=== PATIENT | female | born 1950 | race Caucasian/White ===

== ENCOUNTER → 2016-08-22 09:48 | Outpatient (CLI) | payer MEDICARE, BC ==
[2013-10-01 07:46] VITALS: BMI 42.5
[~2016-08-22 09:48] MED LIST: CLARITIN 10 MG10 MG PO; CRESTOR10 MG PO; GLUCOPHAGE1000 MG PO; HYDROCODON-ACE1 EAC7 PO; LANTUS INSULIN10 ML INJ; NEXIUM40 MG PO; NORVASC5 MG PO
== END | disposition home or self-care (01) ==
LOC: D.RAD 09:48
DX: R13.10 Dysphagia, unspecified (principal)

== ENCOUNTER → 2018-04-10 09:11 | Outpatient (CLI) | payer MEDICARE, BC ==
[2013-10-01 07:46] VITALS: BMI 42.5
== END | disposition home or self-care (01) ==
LOC: D.HCCARDIO 09:11
PROVIDERS: ATTEND Internal Medicine Cardiovascular Disease
DX: I20.9 Angina pectoris, unspecified (principal)

== ENCOUNTER 2018-04-18 11:23 | Inpatient (IN) | payer MEDICARE, BC ==
[~2018-04-18] VITALS: Ht 157.5 cm; Wt 91.8 kg
--- NOTE | ~2018-04-18 | HEMODYNAMI ---
PATIENT:JOSE RAMON JOE MEDICAL RECORD: [id number] : 48 LOCATION:DFREDIS ADMISSION DATE: 04/18/18 Generatedon:04/18/201814:13 Patient name: JOSE RAMON JOE Patient #: [id number] SSN: D OB: 1950 Date of study: 04/18/2018 Page: Of Hemodynamic Procedure Report Patient Data Patient Demographics Procedure consent was obtained First Name: JOSE RAMON Gender: Female Last Name: TATYANA : 1950 [facility] Initial: CHIP Age: 67 year(s) Patient #: [id number] Race: Unknown Additional ID: [id number] Contact details Address: [address] [place] [address] [facility] State: [place] City: [place] Zip code: [address] Past Medical History Allergies: No known allergies Admission Admission Data Admission Date: 04/18/2018 Admission Time: 11:23 Height (in.): 62 BSA: 1.9 (m2) Height (cm.): 157.48 BMI: 36.21 (kg/m2) Weight (lbs.): 198 Weight (kg.): 89.81 Lab Results Lab Result Date: 04/18/2018 Lab Result Time: 0:00 Biochemistry Name Units Result Min Max BUN mg/dl 17 --(---*)-- 7 18 Creatinine mg/dl 0.9 --(-*--)-- 0.6 1.3 CBC Name Units Result Min Max Hematocrit % 38.2 *-(----)-- 42 54 Hemoglobin g/dl 13.1 -*(----)-- 13.5 17.5 Procedure Procedure Types Cath Procedure Diagnostic Procedure [facility] w/Coronaries Procedure Description Procedure Date Procedure Date: 04/18/2018 Procedure Start Time: 13:59 Procedure End Time: 14:10 Procedure Staff Name Function Koby Montero MD Performing Physician Vandana Shah RT Monitor Al Alcaraz RT Scrub Nikki Daly RN Nurse Procedure Data Cath Procedure Fluoroscopy Diagnostic fluoroscopy Total fluoroscopy Time: 1.4 time: 1.4 min min Diagnostic fluoroscopy Total fluoroscopy dose: 538 dose: 538 mGy mGy Contrast Material Contrast Material Type Amount (ml) Isovue 300 62 Entry Location Entry Primary Successful Side Size Upsize Upsize Entry Closure Rgeen ccessful Closure Location (Fr) 1 (Fr) 2 (Fr) Remarks Device Remarks Radial Right 6 Fr Mechanical artery Short Compression Estimated blood loss: 5 ml Diagnostic catheters Device Type Used For End Catheter Placement DIAGNOSTIC Merrill 110cm 5 Procedure Fr catheter ([id number]) Procedure Complications No complications Procedure Medications Medication Administration Route Dosage Oxygen etCO2 Nasal cannula 2 l/min Lidocaine 2% added to field 20 Heparin Flush Bag added to field 2 bags (1000units/500ml NS) 0.9% NaCl I.V. 100 ml/hr Radial Cocktail added to field 1 syringe (Verapomil 2mg/Nitro 400mcg/Heparin 1500units) Versed I.V. 1 mg Fentanyl I.V. 50 mcg Versed I.V. 1 mg Fentanyl I.V. 50 mcg Versed I.V. 1 mg Fentanyl I.V. 50 mcg Hemodynamics Rest BSA: 1.9 (m2) HGB: 13.1 (g/dl) O2 Consumption: Estimated: 169.71 (ml/min) O2 Con sumption indexed: Estimated:89.32 (ml/min/m) Heart Rate: 61 (bpm) Pressure Samples Time Site Value (mmHg) Purpose Heart Use Rate(bpm) 14:02 LV 86/-11,-5 Snapshot 58 14:02 LV 91/-8,-3 Snapshot 65 Gradients Valve Time Site Site Mean SEP/DFP Peak To Heart Use 1 2 (mmHg) (sec/min) Peak Rate (mmHg) (bpm) Aortic 14:03 LV AO 56 Snapshots Pre Cath Intra NCS Post Cath Vital Signs Time Heart Resp SPO2 etCO2 NIBP (mmHg) Rhythm Pain Sedation Rate (ipm) (%) (mmHg) Status Level (bpm) 13:44:39 61 18 97 0 161/68(131) NSR 0 (11) 10(A) , No pain 13:49:09 66 17 98 34.2 177/73(119) NSR 0 (11) 10(A) , No pain 13:53:36 61 15 96 43 153/75(119) NSR 0 (11) 10(A) , No pain 13:57:56 57 10 97 35.6 140/61(104) NSR 0 (11) 10(A) , No pain 14:02:14 56 17 97 41.6 106/51(79) NSR 0 (11) 10(A) , No pain 14:06:32 58 18 94 44.6 97/47(70) NSR 0 (11) 9(A) , No pain 14:11:35 61 13 97 44.6 141/67(112) NSR 0 (11) 10(A) , No pain Medications Time Medication Route Dose Verified Delivered Reason Notes Effectiveness by by 13:42:42 Oxygen etCO2 2 l/min Koby Buffie used for Nasal Winston Daly RN procedure cannula 13:42:50 Lidocaine 2% added 20ml Koby Koby for local to vial Winston Montero MD anesthetic field 13:42:58 Heparin Flush added 2 bags Koby Koby used for Bag to Winston Montero MD procedure (1000units/500ml field NS) 13:43:07 0.9% NaCl I.V. 100 Koby Buffie Per ml/hr Winston Daly RN physician 13:43:15 Radial Cocktail added 1 Koby Koby for (Verapomil to syringe Winston Montero MD vasodilation 2mg/Nitro field 400mcg/Heparin 1500units) 13:55:53 Versed I.V. 1 mg Koby Buffie for sedation Winston Daly RN 13:55:58 Fentanyl I.V. 50 mcg Koby Buffie for sedation Winston Daly RN 14:00:17 Versed I.V. 1 mg Koby Buffie for sedation Winston Daly RN 14:00:22 Fentanyl I.V. 50 mcg Koby Buffie for sedation Winston Daly RN 14:05:16 Versed I.V. 1 mg Koby Buffie for sedation Winston Daly RN 14:05:20 Fentanyl I.V. 50 mcg Koby Buffie for sedation Winston Daly RN Procedure Log Time Note 13:09:34 Signed procedure consent form obtained from patient. 13:09:35 Diagnostic Cath status Elective 13:09:36 Time tracking: Regular hours (M-F 7:00 - 5:00) 13:09:40 Plan of Care:Hemodynamics will remain stable., Cardiac rhythm will remain stable., Comfort level will be maintained., Respiratory function will remain adequate., Patient/ family verbilizes understanding of procedure., Procedure tolerated without complication., Recovers from procedure without complications.. 13:11:21 H&P Date Dictated: 04/03/2018 Within 30 days and on chart., H&P Addendum completed by physician on day of procedure. (MUST COMPLETE FOR ALL OUTPATIENTS). 13:11:31 Patient allergic to No known allergies 13::38 Patient Height : 62 inches 13::41 Patient Weight : 198 lbs 13:: Lab Result : BUN 17 mg/dl 13:: Lab Result : Hemoglobin 13.1 g/dl 13:: Lab Result : Creatinine 0.9 mg/dl :: Lab Result : Hematocrit 38.2 % 13:30:00 Al MALLORY(R) sent for patient. Start room use. 13:36:29 Patient received from Pre/Post Procedure Room to CCL 2 Alert and oriented. Tansferred to table in Supine position. 13:36:31 Warm blankets applied, and simon hugger turned on for patient comfort. 13:36:31 Correct patient and procedure confirmed by team. 13:36:32 ECG and BP/O2 sat monitors applied to patient. 13:42:42 Oxygen 2 l/min etCO2 Nasal cannula was administered by Nikki Daly RN; used for procedure; 13:42:50 Lidocaine 2% 20ml vial added to field was administered by Koby Montero MD; for local anesthetic; 13:42:58 Heparin Flush Bag (1000units/500ml NS) 2 bags added to field was administered by Koby Montero MD; used for procedure; 13:43:07 0.9% NaCl 100 ml/hr I.V. was administered by Nikki Daly RN; Per physician; 13:43:15 Radial Cocktail (Verapomil 2mg/Nitro 400mcg/Heparin 1500units) 1 syringe added to field was administered by Koby Montero MD; for vasodilation; 13:43:18 Vital chart was started 13:44:36 Baseline sample Acquired. 13:44:39 Rhythm: sinus rhythm 13:44:40 Full Disclosure recording started 13:44:40 Pre-procedure instructions explained to patient. 13:44:40 Pre-op teaching completed and patient verbalized understanding. 13:44:42 Family in patients room. 13:44:43 Patient NPO since Midnight. 13:44:45 Is patient on blood thinner?No 13:44:47 Patient diabetic? Yes. 13:44:48 If diabetic: On Metformin? Yes 13:44:50 If on Metformin: Last Dose? 04/16/2018 13:44:53 Previous problem with sedation/anesthesia? No ? 13:45:00 Snore? Yes 13:45:01 Sleep apnea? No 13:45:03 Deviated septum? No 13:45:04 Opens mouth fully? Yes 13:45:05 Sticks out tongue? Yes 13:45:08 Airway obstruction? No ? 13:45:10 Dentures? No ? 13:45:12 Modified Jorge's test Ulnar < 7 seconds 13:45:14 Patient pain scale 0/10 ?. 13:45:23 IV patent on arrival in right antecubital with 0.9% NaCl at [facility]. 13:45:25 Lab results completed and on chart. 13:45:28 Right Radial & Right Groin area was prepped with chlora-prep and draped in sterile fashion 13:45:29 Alarms reviewed by R. N. 13:45:29 Sharps counted by scrub and verified by R.N. 13:45:31 Use device set Radial Dx or PCI 13:45:32 ACIST Syringe (05299) opened to sterile field. 13:45:33 Bag Decanter (2002S) opened to sterile field. 13:45:34 ACIST Manifold (97973) opened to sterile field. 13:45:34 ACIST Hand Control (23910) opened to sterile field. 13:45:36 Tegaderm 4 x 4 (1626W) opened to sterile field. 13:45:38 Medline Cath Pack ([id number]) opened to sterile field. 13:45:39 DIAGNOSTIC WIRE .035 260cm J wire (551165) opened to sterile field. 13:45:39 MBrace Wrist Support ([id number]) opened to sterile field. 13:45:40 NEEDLE Cook 21G 4cm Radial (T90226) opened to sterile field. 13:45:40 SHEATH 6FR Slender (62-1060) opened to sterile field. 13:54:42 Zero performed for pressure channel P1 13:54:52 Zero performed for pressure channel P1 13:55:10 --------ALL STOP TIME OUT------ 13:55:10 Final Timeout: patient, procedure, and site verified with staff and physician. All members of the team are in agreement. 13:55:13 Right Radial & Right Groin site verified by team. 13:55:17 Maximum allowable Isovue 300 dose 300ml. Physician notified. (300ml for normal creatinines. For patients with creatinine of 1.7 or higher multiply weight(kg) x 5 divided by creatinine.) 13:55:21 Fire Safety Assessment: A--An alcohol-based skin anteseptic being used preoperatively., C--Open oxygen or nitrous oxide is being used., D--An ESU, laser, or fiber-optic light is being used. 13:55:24 Physical assessment completed. ASA score P 2 - A patient with mild systemic disease as per Koby Montero MD. 13:55:26 Sedation plan: IV Moderate Sedation Medication:Versed, Fentanyl 13:55:53 Versed 1 mg I.V. was administered by Nikki Daly RN; for sedation; 13:55:58 Fentanyl 50 mcg I.V. was administered by Nikki Daly RN; for sedation; 13:56:33 Zero performed for pressure channel P1 13:59:02 Procedure started. 13:59:28 Local anesthetic to right radial artery with Lidocaine 2% by Koby Montero MD.INITIAL ACCESS ONLY 14:00:17 Versed 1 mg I.V. was administered by Nikki Daly RN; for sedation; 14:00:22 Fentanyl 50 mcg I.V. was administered by Nikki Daly RN; for sedation; 14:01:12 A 6 Fr Short sheath was inserted into the Right Radial artery 14:01:47 A DIAGNOSTIC Merrill 110cm 5 Fr catheter ([id number]) was advanced over the wire and used for Procedure. 14:02:42 LV gram done using HUTCHINSON 14:02:53 LV hemodynamics recorded. 14:02:56 Injector settings: Ml/sec: 7, Volume: 15, 14:03:12 EF : 60 % 14:04:59 LCA angiography performed. 14:05:16 Versed 1 mg I.V. was administered by Nikki Daly RN; for sedation; 14:05:20 Fentanyl 50 mcg I.V. was administered by Nikki Daly RN; for sedation; 14:05:35 RCA angiography performed. 14:07:45 Catheter removed. 14:08:14 TR BAND Standard ([id number]) opened to sterile field. 14:08:27 Procedure ended.(Physican Out) 14:08:46 Sheath removed intact; hemostasis achieved with Mechanical Compression to the Right Radial artery. 14:08:52 Fluoroscopy time 01.40 minutes. 14::56 Flurop Dose total: 538 14:08:56 Fluoroscopy dose: 538 mGy 14::06 Contrast amount:Isovue 300 62ml. 14:09:08 Sharps counted by scrub and verified by R.N. 14:09:10 TR band inflated with 10cc of air. 14:09:21 Post-procedure physical assessment completed. ASA score P 2 - A patient with mild systemic disease as per Koby Montero MD. 14:09:26 Post procedure rhythm: sinus bradycardia 14:09:39 Estimated blood loss: 5 ml 14:09:40 Post procedure instruction explained to patient.Patient verbalizes understanding. 14:09:41 Patient needs reinforcement of post procedure teaching. 14:10:23 Procedure and supply charges have been captured, reviewed, submitted and are correct. 14:10:26 Procedure Complication : No complications 14:10:28 Vital chart was stopped 14:10:28 See physician's report for complete and final results. 14:10:30 Report given to Pre/Post Procedure Room. 14:10:33 Patient transfered to Pre/Post Procedure Room with Bed. 14:10:35 Procedure ended. 14:10:35 Full Disclosure recording stopped 14:10:41 End room use (Document Last) Device Usage Item Name Manufacture Quantity Catalog Hospital Part Current Minimal Lot# / Number Charge Number Stock Stock Serial# Code ACIST Acist 1 49583 496226 630016 701463 20 Syringe Medical (95853) Systems Inc Bag Microtek 1 821233 15004 160114 5 Decanter Medical Inc. () ACIST Acist 1 92609 216224 744450 792667 5 Manifold Medical (94426) Systems Inc ACIST Hand Acist 1 34417 382978 966280 240146 5 Control Medical (42654) Systems Inc Tegaderm 4 3M 1 1626W 999591 407244 773251 5 x 4 (1626W) Medline Medline 1 [id number] 995645 67912 905769 5 Cath Pack ([id number]) DIAGNOSTIC St Constantin 1 610967 831530 739186 743413 30 WIRE .035 260cm J wire (199500) MBrace Advanced 1 140-0250-00 213229 06764 259202 5 Wrist Vascular Support Dynamics ([id number]) NEEDLE Cook Cook Medical 1 C16094 589785 587772 999330 5 21G 4cm Radial (Y42090) SHEATH 6FR Terumo 1 [id number] 064722 849049 234105 5 Slender (801060) DIAGNOSTIC Terumo 1 40-5469 558161 555051 081370 5 Merrill 110cm 5 Fr catheter (686520) TR BAND Terumo 1 [id number] 748301 257775 174615 40 Standard (YUB89IUM) Signature Audit Guild Stage Time Signature Unsigned Intra-Procedure 04/18/2018 Vandana Shah 2:13:24 PM RT(R) Signatures Monitor : Vandana Shah Signature : RT Date : Time : [facility] [address] [place] [address]
[~2018-04-18 11:23] MED LIST changes: +ATIVAN0.5 MG PO; +DIURETIC; +FORTAMET1000 MG/BO PO; +LANTUS INSULIN10 ML SC; +MACROBID100 MG PO; +TENORMIN25 MG PO; +[UNRECOGNIZED DRUG - REMARK]
[2018-04-18] MEDS ORDERED: ASPIRIN81 MG PO (11:35)
[2018-04-18] MEDS ORDERED: CELEXA20 MG PO (11:36)
[2018-04-18] MEDS ORDERED: LANTUS INSULIN10 ML SC (11:37)
[2018-04-18] MEDS ORDERED: ATIVAN0.5 MG PO (11:38)
[2018-04-18] MEDS ORDERED: OXYBUTYNIN CHLOR5 MG PO (11:39)
[2018-04-18] MEDS ORDERED: SINGULAIR10 MG PO (11:39)
[2018-04-18 11:47] VITALS: BP 178/67; BMI 35.9
[2018-04-18 12:05] LABS: BASOPHILS 0.6 % (0-2); EOSINOPHILS 2.3 % (0-7); HEMATOCRIT 38.2 % (36.0-48.0); HEMOGLOBIN 13.1 g/dL (12-16); IMMATURE GRANULOCYTES 0.2 % (0-5); LYMPHOCYTES 35.5 % (15-50); MCH 29.1 pg (26.0-34.0); MCHC 34.3 g/dL (31.0-37.0); MCV 84.9 fL (80.0-100.0); MEAN PLATELET VOLUME 10.1 fL (7.4-10.4); MONOCYTES 7.8 % (2-11); NEUTROPHILS 53.6 % (40-80); PLATELET COUNT 211 10x3/uL (130-400); WBC 5.1 10x3/uL (4.8-10.8)
[2018-04-18 12:11] LABS: CALCIUM 8.8 mg/dL (8.5-10.1); CARBON DIOXIDE 26.9 mmol/L (21.0-32.0); CREATININE - SERUM 0.9 mg/dL (0.6-1.3); POTASSIUM - SERUM 3.9 mmol/L (3.5-5.1)
--- NOTE | 2018-04-18 14:30 | NUR ---
PT RECEIVED VIA STRETCHER FROM TOWER HOIST OPERATOR FOR RECOVERY. PT AWAKE, SOME DROWSY BUT RESPONDS TO VERBAL STIMULI. TR BAND AND IMMOBILIZER TO R WRIST, DRESSING CDI NO BLEEDING OR HEMATOMA NOTED. CAP REFILL BRISK. HR NSR RATE 62, BP 159/63, O2 SAT 99 ON 2L/NC. PT DENIES PAIN OR NEEDS. CALL LIGHT IN REACH AND FAMILY AT BEDSIDE
--- NOTE | 2018-04-18 14:45 | NUR ---
PT RESTING COMFORTABLY, VSS. TR BAND IN PLACE DRESSING CDI NO BLEEDING OR HEMATOMA NOTED. CAP REFILL BRISK. PT DENIES PAIN OR NEEDS. TOLERATING SIPS OF WATER W/O NAUSEA
--- NOTE | 2018-04-18 15:15 | NUR ---
PT SITTING UP IN BED. CALL LIGHT WITHIN REACH. FAMILY AT BEDSIDE. RIGHT RADIAL TR BAND IN PLACE. NO BLEEDING/HEMATOMA NOTED. VSS.
--- NOTE | 2018-04-18 15:25 | NUR ---
DR. NÚÑEZ AT BEDSIDE AND SPEAKING WITH FAMILY AND PT. UPDATED THEM ON PT'S STATUS.
--- NOTE | 2018-04-18 15:52 | NUR ---
3cc OF AIR REMOVED FROM TR BAND. NO BLEEDING/HEMATOMA NOTED. PT SET UP WITH SANDWICH TRAY AND DRINK. DENIES NAUSEA. VSS.
--- NOTE | 2018-04-18 16:08 | NUR ---
3cc OF AIR REMOVED FROM TR BAND. PT TOLERATED WELL. NO BLEEDING/HEMATOMA NOTED. VSS. FAMILY AT BEDSIDE.
--- NOTE | 2018-04-18 16:19 | NUR ---
3cc OF AIR REMOVED FROM TR BAND. NO BLEEDING/HEMATOMA NOTED. VSS. NO NEEDS AT THIS TIME.
--- NOTE | 2018-04-18 16:39 | NUR ---
TR BAND REMOVED FROM PT. DRESSING APPLIED. NO BLEEDING/HEMATOMA NOTED. PT TAKEN TO RESTROOM AND VOIDED WITHOUT DIFFICULTY. BACK TO ROOM. WAITING MARKLOGIC DEVELOPER BACK FROM COLLECTIONS ASSISTANT WITH A BED ASSIGNMENT. FAMILY AT BEDSIDE.
--- NOTE | 2018-04-18 17:12 | NUR ---
REPORT CALLED TO LALI DUKE ON MED 2. PT TAKEN TO ROOM BY WHEELCHAIR. NO S/S OF DISTRESS NOTED. PT'S FAMILY GIVEN ROOM NUMBER.
--- NOTE | 2018-04-18 17:26 | NUR ---
TRANSFERED FROM CHARTER BOAT CAPTAIN HOLDING BY Ronald SUNSHINE TO ROOM. CALL LIGHT IN REACH. WILL CONT. PLAN OF CARE.
[2018-04-18 17:33] VITALS: BP 168/67; BMI 35.9
--- NOTE | 2018-04-18 19:31 | NUR ---
RESUMING PATIENT CARE. PATIENT ALERT AND ORIENTED, RESTING COMFORTABLY IN BED. RESPIRATIONS ARE EVEN AND UNLABORED. NO S/S OF DISTRESS. NO C/O PAIN. CALL LIGHT WITHIN REACH. REMOVED TR BAND BRACE. DENIES NEEDS. WILL CPOC.
[2018-04-19 02:38] VITALS: BP 120/50
--- NOTE | 2018-04-19 07:30 | NUR ---
RECEIVED PT IN BED AAOX4 RESP UNLABORED SKIN W/D COLOR WNL NAD NOTED DENIES ANY NEEDS OR DISCOMFORT
[2018-04-19 08:59] VITALS: BP 146/55
[2018-04-19 11:36] VITALS: BP 143/70
[2018-04-19 12:45] VITALS: BMI 35.8
[2018-04-19 15:54] VITALS: Ht 157.5 cm; Wt 91.8 kg
[2018-04-19 16:25] VITALS: BP 134/69
--- NOTE | 2018-04-19 17:42 | NUR ---
SITTING UP IN CHAIR EATING SUPPER NAD NOTED
--- NOTE | 2018-04-19 19:44 | NUR ---
RESUMED CARE OF PT, UP IN CHAIR RESPIRATIONS EVEN AND UNLABORED ON ROOM AIR. RIGHT AC SALINE LOCKED. 60 SR ON TELEMETRY. RIGHT WRIST C/D/I. PLAN OF CARE DISCUSSED, FAMILY AT BEDSIDE. CALL LIGHT IN REACH. SEE NURSE ASSESSMENT.
[2018-04-19 20:00] VITALS: BP 130/76
[2018-04-20] VITALS: BP 115/35
[2018-04-20 04:00] VITALS: BP 120/39
--- NOTE | 2018-04-20 07:30 | NUR ---
RECEIVED PT IN BED AAOX4 RESP UNLABORED SKIN W/D COLOR WNL TELEMETRY INTACT SR RATE 86 NAD NOTED
[2018-04-20 08:13] VITALS: BP 122/53
[2018-04-20 09:06] LABS: BASOPHILS 0.8 % (0-2); EOSINOPHILS 2.9 % (0-7); HEMATOCRIT 35.9 % (36.0-48.0); HEMOGLOBIN 12.2 g/dL (12-16); LYMPHOCYTES 32.8 % (15-50); MCH 29.2 pg (26.0-34.0); MCV 85.9 fL (80.0-100.0); MEAN PLATELET VOLUME 9.7 fL (7.4-10.4); MONOCYTES 7.5 % (2-11); PLATELET COUNT 215 10x3/uL (130-400); RBC 4.18 10x6/uL (4.00-5.40); RDW 12.8 % (11.5-14.5); WBC 4.9 10x3/uL (4.8-10.8)
[2018-04-20 09:14] LABS: APTT 22.7 SECONDS (22.8-39.4); INR 0.98 (0.85-1.17); PROTIME 12.5 SECONDS (11.6-15.0)
[2018-04-20 09:28] LABS: ALBUMIN 3.7 g/dL (3.4-5.0); ALKALINE PHOSPHATASE 88 U/L (46-116); ALT (SGPT) 28 U/L (10-68); BILIRUBIN - TOTAL 0.49 mg/dL (0.2-1.3); CALC OSMOLALITY 285 mosm/kg (275-300); CALCIUM 8.5 mg/dL (8.5-10.1); CARBON DIOXIDE 26.6 mmol/L (21.0-32.0); CHLORIDE - SERUM 103 mmol/L (98-107); CHOLESTEROL, TOTAL 161 mg/dL (0-200); CREATININE - SERUM 0.7 mg/dL (0.6-1.3); GLUCOSE 222 mg/dL (74-106); PHOSPHOROUS 3.9 mg/dL (2.5-4.9); PROTEIN - SERUM 6.4 g/dL (6.4-8.2); SODIUM 139 mmol/L (136-145); T4 THYROXIN - FREE 0.83 ng/dL (0.76-1.46); UREA NITROGEN 16 mg/dL (7-18); URIC ACID 3.6 mg/dL (2.6-7.2); eGFR NON AFRICAN AMERICAN 88 mL/min (90-120)
--- NOTE | 2018-04-20 09:44 | MORECARE ---
CASE MANAGEMENT DISCHARGE SUMMARY PATIENT: JOSE RAMON JOE CHIP UNIT: [id number] ADM DATE: 04/18/18 AGE: 67 : 49 SEX: F ROOM/BED: D.2118 AUTHOR: MABEL WILSON PHYSICIAN: REFERRING PHYSICIAN: SARA NÚÑEZ M.D. DATE OF SERVICE: 04/20/18 Discharge Plan Patient Name: JOSE RAMON JOE Facility: [facility]:[place] : 1950 Planned Disposition: Home or Self Care Anticipated Discharge Date: Discharge Date: Expected LOS: Initial Reviewer: [email or web address] Initial Review Date: 04/20/2018 Generated: 04/20/18 10:44 am DCPIA - Discharge Planning Initial Assessment Updated by [email or web address]: Alena Zaidi on 04/20/18 9:40 am * Is the patient Alert and Oriented? Yes * How many steps to enter\exit or inside your home? 2, RAMP * PCP DR BOSE * Pharmacy [facility] * Preadmission Environment Home Alone * ADLs Independent * Equipment Bedside Commode Cane Rolling Walker Shower Chair * Other Equipment ALL EQUIPMENT BELONGED TO HER SPOUSE BEFORE HE PASSED, SHE STATED THAT SHE DOES NOT USE IT, BUT HAS IT IF NEEDED. * List name and contact numbers for known caregivers / representatives who currently or will assist patient after discharge: ROSINA QUARLES, DAUGHTER, ANGELITO MCHUGH, DAUGHTER, AND SON ISHAN JOE JR, OR ZOHAIB FONTAINE (NO PHONE NUMBER) * Verbal permission to speak to the caregivers and representatives has been obtained from the patient. Yes * Community resources currently utilized None * Additional services required to return to the preadmission environment? No * Can the patient safely return to the preadmission environment? Yes * Has this patient been hospitalized within the prior 30 days at any hospital? No Patient Name: JOSE RAMON JOE Page 75810 at 0944 All edits/amendments must be made on the electronic document DICTATION DATE: 04/20/18943 WELFARE INTERVIEWER: RADHAMES 04/20/18943 RPT#: [id number] DC DATE: STATUS: ADM IN [facility] [address] [place] [address] END OF REPORT
--- NOTE | 2018-04-20 09:54 | MORECARE ---
CASE MANAGEMENT DISCHARGE SUMMARY PATIENT: JOSE RAMON JOE CHIP UNIT: [id number] ADM DATE: 04/18/18 AGE: 67 : 49 SEX: F ROOM/BED: D.6746 AUTHOR: STEVE,DOC PHYSICIAN: REFERRING PHYSICIAN: SARA NÚÑEZ M.D. DATE OF SERVICE: 04/20/18 Discharge Plan Patient Name: JOSE RAMON JOE Facility: [facility]:[place] : 1950 Planned Disposition: Home or Self Care Anticipated Discharge Date: Discharge Date: Expected LOS: Initial Reviewer: [email or web address] Initial Review Date: 04/20/2018 Generated: 04/20/18 10:54 am Comments DCP- Discharge Planning Updated by [email or web address]: Alena Zaidi on 04/20/18 8:[address] Patient Name: JOSE RAMON JOE Admission Status: Elective Accout number: [id number] Admission Date: 04-18-2018 : 1950 Admission Diagnosis: Attending: SARA NÚÑEZ Current LOS: 2 Anticipated DC Date: Planned Disposition: Home or Self Care Primary Insurance: MEDICARE A & B Discharge Planning Comments: CM MET IN ROOM WITH PATIENT AND HER NIECE, MINAL, AFTER VERBAL CONSENT WAS OBTAINED IN REGARDS TO DISCHARGE PLANNING. PATIENT LIVES AT HOME ALONE. SHE HAS 2 STEPS IN THE FRONT OF HER HOME, BUT DOES NOT USE THEM. SHE USES THE RAMP IN HER [place]. SHE LISTED THE MEDICAL EQUIPMENT AT HOME THAT BELONGED TO HER LATE SPOUSE, BUT STATED SHE DOES NOT USE IT, AND AT THIS TIME STATED SHE DOES NOT FEEL SHE NEEDS IT. SHE CURRENTLY DOES NOT HAVE ANY COMMUNITY RESOURCES ASSISTING HER, AND DENIES THAT SHE NEEDS ANY AT THIS TIME. CM WILL CONTINUE TO FOLLOW FOR DISCHARGE NEEDS. LEFT MY EXTENTION WITH THE PATIENT IF SHE WERE TO THINK OF ANYTHING SHE NEEDED BEFORE DISCHARE. Chief Dispatcher Service: Alena Zaidi RN DCPIA - Discharge Planning Initial Assessment Updated by [email or web address]: Alena Zaidi on 04/20/18 9:40 am * Is the patient Alert and Oriented? Yes * How many steps to enter\exit or inside your home? 2, RAMP * PCP DR BOSE * Pharmacy [facility] * Preadmission Environment Home Alone * ADLs Independent * Equipment Bedside Commode Cane Rolling Walker Shower Chair * Other Equipment ALL EQUIPMENT BELONGED TO HER SPOUSE BEFORE HE PASSED, SHE STATED THAT SHE DOES NOT USE IT, BUT HAS IT IF NEEDED. * List name and contact numbers for known caregivers / representatives who currently or will assist patient after discharge: ROSINA QUARLES, DAUGHTER, ANGELITO MCHUGH, DAUGHTER, AND SON ISHAN JOE JR, OR ZOHAIB FONTAINE (NO PHONE NUMBER) * Verbal permission to speak to the caregivers and representatives has been obtained from the patient. Yes * Community resources currently utilized None * Additional services required to return to the preadmission environment? No * Can the patient safely return to the preadmission environment? Yes * Has this patient been hospitalized within the prior 30 days at any hospital? No Last DP export: 04/20/18 8:44 a Patient Name: JOSE RAMON JOE Page 38570 at 0954 All edits/amendments must be made on the electronic document DICTATION DATE: 04/20/18952 FOUNTAIN VENDING MECHANIC: RADHAMES 04/20/18952 RPT#: [id number] DC DATE: STATUS: ADM IN [facility] [address] [place] [address] END OF REPORT
--- NOTE | 2018-04-20 10:14 | NUR ---
PT UP WALKING IN HALLWAY TOLERATING WELL NAD NOTED
[2018-04-20 11:05] VITALS: BP 128/55
--- NOTE | 2018-04-20 12:08 | NUR ---
FSBS 178 PT HAD EATEN AND REFUSED COVERAGE STATES SHE WILL GET OUT AND WALK AND BRING SUGAR DOWN
--- NOTE | 2018-04-20 14:57 | EC ---
PATIENT:JOSE RAMON JOE CHIP DATE OF SERVICE: 04/18/18 SEX: F MEDICAL RECORD: [id number] DATE OF : [birth year] LOCATION:D.M2 D.211 AGE OF PATIENT: 67 ADMISSION DATE: 04/18/18 REFERRING PHYSICIAN: INTERPRETING PHYSICIAN: NATALIA MENDOZA MD ECHOCARDIOGRAM REPORT ECHO CHARGES 4 ECHO COMPLETE Date: 04/19/18 CLINICAL DIAGNOSIS: PREOP CABG ECHOCARDIOGRAPHIC MEASUREMENTS (adult normal given) AC root (d.<3.7cm) 3.4 cm LV Septum d (<1.2 cm> 1.6 cm Valve Excursion 1.8 cm LV Septum (systole) 1.7 cm Left Atria (s.<4.0cm> 3.5 cm LVPW d(<1.2cm) 1.4 cm RV (d.<2.3cm) 3.1 cm LVPW (sytole) 1.7 cm LV diastole(<5.6CM) 5.6 cm MV E-F(>70mm/sec) cm LV systole 4.0 cm LVOT Diameter 1.8 cm MV exc.(>10mm) 1.7 cm Est.ejection fraction (50-75%) % DOPPLER: LVIT cm/sec A 92.0 cm/sec E 79.0 cm/sec LA cm/sec RVSP 19 mmHg LVOT 123 cm/sec AOP1/2T m/s Asc. Ao 175 cm/sec RVOT 70 cm/sec RA cm/sec PA 128 cm/sec AV Gradient Peak 12.25mmHg AV Mean 6.95 mmHg AV Area 2.0 cm MV Gradient Peak 4.59 mmHg MV Mean 1.59 mmHg MV Area cm COMMENTS: Reticle Printer: Renae DAVIES Insulation Installer: 2 Dr. Montero TAPE# PACS Pericardial Effusion N DATE OF SERVICE: 04/19/2018 FINDINGS: 1. Left ventricular chamber size is within normal limits. Left ventricular systolic function is normal. Overall ejection fraction estimated at 55% to 60%. 2. Left atrium, right atrium, and right ventricular chamber sizes are within normal limits. 3. Valvular structures have normal structure and motion. 4. Doppler interrogation reveals no significant valvular insufficiency or stenosis. Pulmonary systolic pressure is normal, estimated at 19 mmHg. ECHOCARDIOGRAM REPORT [id number] JOSE RAMON JOE CHIP 5. No evidence of pericardial effusion or left ventricular thrombus. TRANSINT:[id number] Voice Confirmation ID: [id number] DOCUMENT ID: [id number] NATALIA MENDOZA MD at 1457 CC: [id number] DICTATION DATE: 04/19/18 151 OVERNIGHT CAREGIVER: 04/19/18 2247 ADM IN [facility] [address] [place] [address]
[2018-04-20 15:38] VITALS: BP 132/58
[2018-04-20 16:02] LABS: APPEARANCE HAZY (CLEAR); BILIRUBIN NEGATIVE (NEGATIVE); COLOR YELLOW (YELLOW); GLUCOSE 50 mg/dL (NEGATIVE); KETONE NEGATIVE (NEGATIVE); NITRITE POSITIVE (NEGATIVE); PROTEIN NEGATIVE (NEGATIVE); SPECIFIC GRAVITY 1.015 (1.005-1.020); UROBILINOGEN NORMAL (NORMAL)
[2018-04-20 16:05] LABS: BACTERIA MANY /hpf (NONE SEEN); EPITHELIAL CELLS 0-5 /hpf (0-5); RED CELLS - URINE 0-5 /hpf (0-5)
[2018-04-20 17:08] LABS: % SATURATION 25 % (15-55); IRON 84 ug/dl (35-150); TOTAL IRON BIND CAPACITY 324 ug/dl (260-445); UNSAT IRON BIND CAPACITY 240 ug/dl (150-375)
--- NOTE | 2018-04-20 19:10 | NUR ---
Received patient sitting up in room visiting with son. Alert and oriented x 4, Rt wrist dressing C/D/I. Telemetry on, rhythm SR, HR =62/min. No voiced complaints at this time.
[2018-04-20 20:00] VITALS: BP 127/32
--- NOTE | 2018-04-20 20:36 | NUR ---
Given [place] on request for pain
--- NOTE | 2018-04-20 21:44 | NUR ---
Given [place] on request for anxiety and to settle to sleep.
[2018-04-21 00:09] VITALS: BP 111/41
--- NOTE | 2018-04-21 02:35 | NUR ---
Sleeping, eyes closed, respirations easy and regular.
[2018-04-21 04:11] VITALS: BP 129/54
--- NOTE | 2018-04-21 07:15 | NUR ---
Patient's BG check last evening was 195 which calls for 4 Units SS Regular insulin. Patient refused same and took her long acting insulin. Per patient ans son, her BG drops significantly during the night. This morning's BG check = 96. Did not give long-acting insulin this morning as has not been served breakfast yet, Passed this on in report.
--- NOTE | 2018-04-21 07:15 | NUR ---
ASSESSMENT DONE. DENIES NEEDS.
[2018-04-21 09:13] VITALS: BP 118/67
[2018-04-21 11:30] VITALS: BP 139/64
--- NOTE | 2018-04-21 14:43 | NUR ---
I have reviewed this patient and I concur with the Shift Assessment completed by the Licensed Practical Nurse today this shift.
[2018-04-21 15:30] VITALS: BP 127/54
[2018-04-21 15:32] LABS: APPEARANCE CLEAR (CLEAR); COLOR STRAW (YELLOW)
[2018-04-21 15:33] LABS: BILIRUBIN NEGATIVE (NEGATIVE); GLUCOSE 50 mg/dL (NEGATIVE); KETONE NEGATIVE (NEGATIVE); NITRITE POSITIVE (NEGATIVE); PROTEIN NEGATIVE (NEGATIVE); UROBILINOGEN NORMAL (NORMAL)
[2018-04-21 15:38] LABS: BACTERIA MANY /hpf (NONE SEEN); EPITHELIAL CELLS 0-5 /hpf (0-5); RED CELLS - URINE 0-5 /hpf (0-5)
--- NOTE | 2018-04-21 17:40 | NUR ---
WITHOUT CHANGES OR DISTRESS NOTED AT THIS TIME. DENIES NEEDS. FAMILY AT SIDE.
[2018-04-21 19:45] VITALS: BP 137/47
--- NOTE | 2018-04-21 19:58 | NUR ---
INITIAL ROUNDS COMPLETED AT 1900HRS. PT DENIED ANY DISCOMFORT. FAMILY AT BEDSIDE. LEVAQUIN IVAB INFUSING WITHPUT DIFFICULTY. ASSESSMENT COMPLETED AT 1935 HRS. VSS. SB PER CM HR 54. LUNGS ESSENTIALLY CTA. SARMIENTO. IVAB INFUSED. IV TO L WRIST CHANGED TO SL. DRESSING TO R WRIST CLEAN, DRY AND INTACT. SR UP X2,CALL LIGHT WITHIN REACH.
--- NOTE | 2018-04-21 21:50 | NUR ---
PM FSBS 106. NO COVERAGE NEEDED. PT DECLINED SCHEDULED LANTUS. PM MEDS GIVEN INCLUDING ATIVAN 0.5MG PO FOR C/O ANXIETY AND TO HELP SLEEP. CALL LIGHT WITHIN REACH.
--- NOTE | 2018-04-22 00:21 | NUR ---
PT RESTING WITH EYES CLOSED. RESP EVEN AND REGULAR. SR UP X2, CALL LIGHT WITHIN REACH AND FAMILY AT BEDSIDE.
[2018-04-22 00:29] VITALS: BP 126/51
--- NOTE | 2018-04-22 02:44 | NUR ---
PT RESTING WITH EYES CLOSED. RESP EVEN AND REGULAR. SR UP X2, CALL LIGHT WITHIN REACH.
[2018-04-22 03:55] VITALS: BP 134/47
--- NOTE | 2018-04-22 04:35 | NUR ---
PT RESTING WITH EYES CLOSED. RESP EVEN AND REGULAR. SR UP X2, CALL LIGHT WITHIN REACH.
[2018-04-22 04:58] LABS: BASOPHILS 0.6 % (0-2); EOSINOPHILS 3.2 % (0-7); HEMATOCRIT 35.1 % (36.0-48.0); HEMOGLOBIN 11.7 g/dL (12-16); LYMPHOCYTES 44.6 % (15-50); MCHC 33.3 g/dL (31.0-37.0); MCV 86.9 fL (80.0-100.0); MEAN PLATELET VOLUME 10.1 fL (7.4-10.4); NEUTROPHILS 42.6 % (40-80); PLATELET COUNT 206 10x3/uL (130-400); RBC 4.04 10x6/uL (4.00-5.40); RDW 12.8 % (11.5-14.5); WBC 5.4 10x3/uL (4.8-10.8)
[2018-04-22 05:16] LABS: CALC OSMOLALITY 285 mosm/kg (275-300); CALCIUM 8.3 mg/dL (8.5-10.1); CARBON DIOXIDE 27.4 mmol/L (21.0-32.0); CHLORIDE - SERUM 108 mmol/L (98-107); CREATININE - SERUM 0.7 mg/dL (0.6-1.3); GLUCOSE 94 mg/dL (74-106); POTASSIUM - SERUM 3.8 mmol/L (3.5-5.1); SODIUM 143 mmol/L (136-145); UREA NITROGEN 16 mg/dL (7-18); eGFR NON AFRICAN AMERICAN 88 mL/min (90-120)
--- NOTE | 2018-04-22 05:43 | NUR ---
ORTHOSTATIC VS. LYING 100/59 HR 73. SITTING 103/70 HR 87. STANDING 98/59 HR 84. DENIES ANY DISCOMFORT. CALL LIGHT WITHIN REACH.
--- NOTE | 2018-04-22 06:24 | NUR ---
VSS THROUGHOUT NIGHT. SB PER CM. AM FSBS 94. PT REFUSED AM INSULIN. NEEDS MET; WILL CONTINUE TO MONITOR.
--- NOTE | 2018-04-22 07:09 | NUR ---
ASSESSMENT DONE. DENIES NEEDS.
--- NOTE | 2018-04-22 07:56 | NUR ---
I have reviewed this patient and I concur with the Shift Assessment completed by the Licensed Practical Nurse today this shift.
[2018-04-22 09:22] VITALS: BP 134/67
[2018-04-22 13:41] VITALS: BP 132/64
[2018-04-22 17:32] VITALS: BP 152/47
--- NOTE | 2018-04-22 17:42 | NUR ---
WITHOUT CHANGES OR DISTRESS NOTED AT THHIS TIME. DENIES NEEDS.
[2018-04-22 20:00] VITALS: BP 140/46
--- NOTE | 2018-04-22 20:00 | NUR ---
INITIAL ROUNDS COMPLETED AT 1910 HRS. PT DENIED ANY DISCOMFORT. ASSESSMENT COMPLETED AT 1930 HRS. SB PER CM HR 53. IV TO L WRIST SL. LUNGS ESSENTIALLY CTA. ALERT AND ORIENTED TO PERSON, PLACE AND TIME. SARMIENTO. R WRIST CLEAN, DRY AND INTACT WITHOUT SWELLING, BLEEDING OR BRUISING. SON AT BEDSIDE. BED LINENS CHANGED. PT SITTING UP IN RECLINER. CALL LIGHT WITHIN REACH.
--- NOTE | 2018-04-22 22:26 | NUR ---
HIBICLENS BATH DONE. BED LINENS CHANGED. HS MEDS GIVEN. PT CURRENTLY RESTING WITH EYES CLOSED. RESP EVEN AND REGULAR. SR UP X2,CALL LIGHT WITHIN REACH. SON AT BEDSIDE.
[2018-04-23] VITALS (42 sets, daily range): BP systolic 96–146; BP diastolic 45–58
--- NOTE | 2018-04-23 00:15 | NUR ---
PT RESTING WITH EYES CLOSED. RESP EVEN AND REGULAR. SR UP X2, CALL LIGHT WITHIN REACH.
--- NOTE | 2018-04-23 02:06 | NUR ---
PT RESTING WITH EYES CLOSED. RESP EVEN AND REGULAR. SR UP X2, CALL LIGHT WITHIN REACH.
--- NOTE | 2018-04-23 03:51 | NUR ---
PT RESTING WITH EYES CLOSED. RESP EVEN AND REGULAR. SR UP X2, CALL LIGHT WITHIN REACH.
--- NOTE | 2018-04-23 05:00 | NUR ---
PT CLIPPED PER ORDERS. PT DENIES ANY DISCOMFORT. SON AT BEDSIDE. VSS. SB PER CM HR 54. CALL LIGHT WITHIN REACH.
--- NOTE | 2018-04-23 05:46 | NUR ---
PRE-OP MEDS GIVEN PER ORDERS. CEFUROXIME TO GO WITH PT TO OR. FAMILY AT BEDSIDE.
--- NOTE | 2018-04-23 05:47 | NUR ---
AM FSBS 108.
[2018-04-23 06:10] LABS: BASOPHILS 0.5 % (0-2); EOSINOPHILS 2.6 % (0-7); HEMATOCRIT 36.9 % (36.0-48.0); HEMOGLOBIN 12.4 g/dL (12-16); IMMATURE GRANULOCYTES 0.2 % (0-5); LYMPHOCYTES 38.5 % (15-50); MCHC 33.6 g/dL (31.0-37.0); MCV 86.2 fL (80.0-100.0); NEUTROPHILS 50.2 % (40-80); PLATELET COUNT 230 10x3/uL (130-400); RBC 4.28 10x6/uL (4.00-5.40); WBC 5.5 10x3/uL (4.8-10.8)
[2018-04-23 06:22] LABS: CALC OSMOLALITY 283 mosm/kg (275-300); CARBON DIOXIDE 28.6 mmol/L (21.0-32.0); CHLORIDE - SERUM 104 mmol/L (98-107); CREATININE - SERUM 0.8 mg/dL (0.6-1.3); GLUCOSE 105 mg/dL (74-106); POTASSIUM - SERUM 3.6 mmol/L (3.5-5.1); SODIUM 142 mmol/L (136-145); UREA NITROGEN 16 mg/dL (7-18); eGFR NON AFRICAN AMERICAN 75 mL/min (90-120)
--- NOTE | 2018-04-23 09:38 | NUR ---
Nutrition follow-up: Pt now NPO for CABG PO intake of low sodium diet has been ~75% average of meals Labs reviewed Wt: 187# +BM RDN following.
--- NOTE | 2018-04-23 14:47 | NUR ---
PT ARRIVED TO ROOM 1350 SEDATED, ETT 8.0 PLACED ON VENT VIA RT, R IJ CVL DRESSING CDI WITH PLASMALYTE 100ML/HR, NEOSYNEPHRINE 0.4MCG/KG/MIN, INITATED ZINACEF, R RADIAL A LINE ZEROED, GOOD WAVEFORM, WRIST PROTECTOR IN PLACE, RESTRAINTS APPLIED, MIDSTERNAL AND SUBSTERNAL DRESSING CDI, SUBSTERNAL TPM WIRES SECURED TO CHEST, TPM ATTACHED AND ON AAA 80, AMA10, BATTERY CHANGED TODAY,HR 80 NSR SUBSTERNAL CTX2 NO AIR LEAK PLACED TO SUCTION, SUBSTERNAL SANIA DRAIN COMPRESSED, CRITICORE CARSON DRAINING YELLOW URINE, BLE HARVEST SITES WITH COBAN GROIN TO ANKLE AND RLE JPX2 COMPRESSED, PT ABLE TO FOLLOW COMMANDS, FAMILY UPDATED BY DR VOSS AND SECURITY CODE SET UP, DR VOSS REVIEWED ABGS, TREATING [facility], WILL CONTINUE TO MONITOR 1:1
--- NOTE | 2018-04-23 15:25 | NUR ---
PT RR READING 50XMIN AND ABD PULSATING IN TIME WITH TPM, DR VOSS IN UNIT AND CAME TO ROOM, ADJUSTED TPM TO AAI 80 AMA 5, RR WNL, TPM WITH CAPTURE AND ABD NO LONGER PULSING WITH RATE
--- NOTE | 2018-04-23 15:41 | NUR ---
TPM BEGAN TO NOT CAPTURE WITH AMA 5 AND BP DROPPING, RETURNED TO AMA OF 10, TITRATED LEIGH TO BP, RETURNED TO 95-100 SYSTOLIC AND LEIGH WEANED TO 0.3MCG, ORDERS TO START DOPAMINE AT 2MCG., TPM CAPTURING.
--- NOTE | 2018-04-23 16:01 | NUR ---
KCL AND BICARB TREATED ON ABGS PER ORDERS
--- NOTE | 2018-04-23 17:25 | NUR ---
1655 extubated to 4l nc reviewed post extubation abgs with dr lawton while in unit, not treating base excess at this time
--- NOTE | 2018-04-23 18:47 | NUR ---
PT RESTING, EASILY ALERT WITH VERBAL STIMULI, ORIENTED, DENIES ALL NEEDS, 500 ON IS, EDUCATED ON SPLINTING WITH PILLOW WHILE COUGHING, WEAK COUGH, EDUCATED HANGING FLAGS DECORATOR LIGHT AND DENIES QUESTIONS
--- NOTE | 2018-04-23 22:26 | NUR ---
PATIENT HAD SIPS OF H20 WITH MEDS WITH NO DIFFICULTIES SWALLOWING NOTED. CALL LIGHT WIHTIN REACH, BED IN LOW POSITION. PT DENIES ANY NEEDS AT THIS TIME.
[2018-04-24] VITALS (65 sets, daily range): BP systolic 92–133; BP diastolic 36–71
[2018-04-24 06:37] LABS: BASOPHILS 0 % (0-2); EOSINOPHILS 0 % (0-7); IMMATURE GRANULOCYTES 0.1 % (0-5); LYMPHOCYTES 7.9 % (15-50); MCH 29.2 pg (26.0-34.0); MCHC 33.7 g/dL (31.0-37.0); MCV 86.6 fL (80.0-100.0); MEAN PLATELET VOLUME 9.5 fL (7.4-10.4); MONOCYTES 7.6 % (2-11); NEUTROPHILS 84.4 % (40-80); RDW 13.1 % (11.5-14.5)
[2018-04-24 06:40] LABS: HEMATOCRIT 25.2 % (36.0-48.0); HEMOGLOBIN 8.5 g/dL (12-16); PLATELET COUNT 153 10x3/uL (130-400); RBC 2.91 10x6/uL (4.00-5.40); WBC 12.6 10x3/uL (4.8-10.8)
[2018-04-24 07:04] LABS: ALBUMIN 3.2 g/dL (3.4-5.0); ALKALINE PHOSPHATASE 49 U/L (46-116); ALT (SGPT) 18 U/L (10-68); CALC OSMOLALITY 291 mosm/kg (275-300); CALCIUM 7.8 mg/dL (8.5-10.1); CARBON DIOXIDE 28.8 mmol/L (21.0-32.0); CHLORIDE - SERUM 108 mmol/L (98-107); CREATININE - SERUM 0.7 mg/dL (0.6-1.3); POTASSIUM - SERUM 3.8 mmol/L (3.5-5.1); PROTEIN - SERUM 5.3 g/dL (6.4-8.2); SODIUM 144 mmol/L (136-145); UREA NITROGEN 16 mg/dL (7-18); eGFR NON AFRICAN AMERICAN 88 mL/min (90-120)
[2018-04-24 07:10] LABS: GLUCOSE 173 mg/dL (74-106)
[2018-04-24 09:21] LABS: FOLATE (FOLIC ACID) - SERUM >20.0 ng/mL (>3.0)
--- NOTE | 2018-04-24 10:36 | NUR ---
SPOKE WITH DR WOOTEN RE: ANTIBIOTICS.SAYS TO ASK DR VOSS IF HE AGREES. HE IS CURRENTLY IN SURGERY. SPOKE WITH HIS NURSE. WILL HOLD ADMINISTRATION UNTIL BIPIN RESPONDS TO ENQUIRY.
--- NOTE | 2018-04-24 11:48 | NUR ---
PT ASSISTED BY PHYSICAL THERAPIST UP TO CHAIR. TOLERATED WELL. NO DISTRESS. CALL LIGHT IN REACH AND LUNCH TRAY PROVIDED REQUESTED.
--- NOTE | 2018-04-24 12:58 | NUR ---
PT ATE FEW BITES OF LUNCH TRAY. FAMILY AT BEDSIDE. ASSISTED PT WITH ORAL CARE. ICE WATER AND ICE CHIPS PROVIDED REQUESTED.
--- NOTE | 2018-04-24 15:45 | NUR ---
CHEST TUBES REMOVED, DRESSING CHANGED PER ORDERS. ZEKE DRAINS IN RIGHT LEG REMOVED. SITES COVERED WITH GAUZE. MONA MONTERROSO PLACED ON PT.
--- NOTE | 2018-04-24 18:20 | NUR ---
DR PARR BY TO SEE PATIENT. PLANS TO SEE PATIENT OUTPATIENT.
[2018-04-25] VITALS (17 sets, daily range): BP systolic 98–122; BP diastolic 31–58
[2018-04-25 06:23] LABS: BASOPHILS 0.1 % (0-2); EOSINOPHILS 0 % (0-7); HEMATOCRIT 23.8 % (36.0-48.0); IMMATURE GRANULOCYTES 0.2 % (0-5); LYMPHOCYTES 8.2 % (15-50); MCH 29.3 pg (26.0-34.0); MCHC 33.6 g/dL (31.0-37.0); MCV 87.2 fL (80.0-100.0); MEAN PLATELET VOLUME 9.9 fL (7.4-10.4); MONOCYTES 7.8 % (2-11); NEUTROPHILS 83.7 % (40-80); PLATELET COUNT 141 10x3/uL (130-400); RBC 2.73 10x6/uL (4.00-5.40); RDW 13.7 % (11.5-14.5); WBC 14.8 10x3/uL (4.8-10.8)
[2018-04-25 07:11] LABS: ALBUMIN 3.1 g/dL (3.4-5.0); ANION GAP 17.2 mmol/L (8-16); BILIRUBIN - TOTAL 0.5 mg/dL (0.2-1.3); CALCIUM 7.9 mg/dL (8.5-10.1); CARBON DIOXIDE 24.1 mmol/L (21.0-32.0); POTASSIUM - SERUM 4.3 mmol/L (3.5-5.1); PROTEIN - SERUM 5.7 g/dL (6.4-8.2)
[2018-04-25 07:12] LABS: CREATININE - SERUM 0.9 mg/dL (0.6-1.3)
--- NOTE | 2018-04-25 07:44 | NUR ---
SHIFT ASSESSMENT COMPLETE. PT UP IN CHAIR AT BEDSIDE. C/O CHAIR BEING UNCOMFORTABLE AND HURTING HER BACKSIDE. CARSON CATHETER REMAINS. TEMP 100.8. SANIA DRAIN INTACT AND COMPRESSED. SEROSANG FLUID NOTED. PT DENIES PASSING GAS.
--- NOTE | 2018-04-25 08:23 | OP ---
PATIENT NAME: JOSE RAMON JOE MEDICAL RECORD: [id number] :48 [id number] ADMISSION DATE:04/18/18 SURGEON: SCOTT VOSS MD DATE OF OPERATION: 04/23/2018 SURGEON: Scott Voss MD SPECIALIST FIELD ENGINEER: Emmett Lr MD PROCEDURES PERFORMED: Coronary artery bypass graft times 4 (left internal mammary to LAD and reverse saphenous vein graft from aorta to first diagonal, aorta to obtuse marginal, aorta to posterior descending artery). PREOPERATIVE DIAGNOSIS: Coronary artery disease. POSTOPERATIVE DIAGNOSIS: Coronary artery disease. ANESTHESIA: General endotracheal anesthesia. ESTIMATED BLOOD LOSS: Total cardiopulmonary bypass with Cell Saver retransfusion. COMPLICATIONS: None. SPECIMENS: None. CONDITION: Stable. DISPOSITION: CV ICU. OPERATIVE FINDINGS: 1. Transesophageal echocardiography revealed normal ventricular function and no valvular stenosis or incompetence. 2. No sizable greater saphenous vein available below the knee to begin endoscopic harvest on either side. An incision was made in the left leg, but no vein was removed. Intermittent bridging incisions were made at the right thigh and a longitudinal incision was made on the right lower leg for smaller portion of vein that was unfortunately thin walled. 3. Good quality left internal mammary artery. The LAD was an intramyocardial 1.5-mm vessel with good Doppler flow after anastomosis and after reversal of heparin. 4. Diagonal was a 1.25-mm vessel. 5. The obtuse marginal was 2.0 mm with severe disease. 6. The ongoing right coronary artery beyond the posterior descending artery had severe disease, although this was a significantly larger vessel than the posterior descending artery. It was not grafted. The posterior descending artery was grafted, which was a 1.5-mm moderately tortuous vessel. OPERATIVE INDICATION: Coronary artery disease. OPERATIVE PROCEDURE IN DETAIL: The patient was brought to the operating suite. General anesthesia was obtained and the patient was prepped and draped. Greater saphenous vein harvested through open incisions in the right lower leg. This portion of the operation was performed by the culinary assistant surgeon, Dr. Lr. He removed vein, tied, clipped, and oversewed the side branches to ensure patency OPERATIVE REPORT [id number] JOSE RAMON JOE and then later the leg was closed in 2 layers including skin clips. A small incision was made in the left leg, but no vein was removed from the left leg. The utilization of the culinary assistant surgeon saved approximately 1-1/2 hours. Median sternotomy incision was made. Subcutaneous tissue was divided by electrocautery. Sternum was divided with a saw. Left hemisternum was elevated. Left pleural cavity was entered. Left internal mammary vein was taken as a pedicle graft. Sternal retractor was placed. Pericardium was opened. Heparin was given. Aorta was cannulated. Dual stage venous cannula was inserted. Internal mammary was clipped and made ready for anastomosis. Activated clotting time was appropriately elevated and the patient was placed on cardiopulmonary bypass. Sites for distal anastomosis were selected. Antegrade cardioplegia needle was inserted. Crossclamp was placed and cardioplegia was given antegrade and this was repeated at 15- to 20-minute intervals including down the completed vein grafts. Distal anastomoses were performed in standard technique and proximal anastomosis with single cross-clamp technique. The clamp was removed and grafts were inspected for patency and hemostasis. The patient was fully rewarmed, weaned from cardiopulmonary bypass, and was stable. Atrial and ventricular pacing wires were placed. The patient was decannulated. Protamine was given. Hemostasis was ensured and irrigation was undertaken. Drains were placed in the mediastinum with the tip in the right pleural cavity and one in the left pleural cavity. The left chest was evacuated and irrigated. Internal mammary harvest site was ensured to be hemostatic. Pericardial fat was loosely reapproximated in the midline. Sternum was closed with wires. Fascia was closed. Subcutaneous tissue was closed. Skin was closed. Dermabond was placed. Needle and sponge counts were reported as correct. The patient was taken to the ICU in stable condition. TRANSINT:[id number] Voice Confirmation ID: [id number] DOCUMENT ID: [id number] SCOTT VOSS MD at 0823 CC: SARA NÚÑEZ M.D. and LOUANN BOSE [id number] DICTATION DATE: 04/23/18 164 CATERING ADMINISTRATIVE ASSISTANT: 04/23/182025 ADM IN [facility] [address] [place] [address]
--- NOTE | 2018-04-25 10:15 | NUR ---
CARSON CATHETER REMOVED, TIP INTACT. PT UP TO WALK WITH PHYSICAL THERAPY. NO DISTRESS. DID BECOME WEAK JUST OUTSIDE PT ROOM AND WAS ASSISTED BACK TO HER CHAIR. VSS.
--- NOTE | 2018-04-25 10:16 | NUR ---
NUTRITION F//U PT UP TO CHAIR. NURSING REPORTS PT TOLERATING DIABETIC DIET WITH IMPROVING PO INTAKE DAILY. WILL CONTINUE TO PROVIDE DIET, MONITOR INTAKE. RD FOLLOWING
--- NOTE | 2018-04-25 11:47 | NUR ---
TEO LEBLANC PROVIDED TO PATIENT FOR CHAIR.
--- NOTE | 2018-04-25 14:40 | TEE ---
PATIENT:JOSE RAMON JOE [facility] MEDICAL RECORD: [id number] LOCATION:[place] [address] AGE OF PATIENT: 67 ADMISSION DATE: 04/18/18 SEX: F REFERRING PHYSICIAN: INTERPRETING PHYSICIAN: OMA JAMES MD TRANSESOPHAGEAL ECHOCARDIOGRAM Date: 04/23/18 JANN CHARGE Y INDICATIONS: CABG PREMEDICATIONS: PATIENT'S RESPONSE PROCEDURE DOPPLER MEASUREMENTS: LVIT LA PA 128 RA LVOT 123 RVOT 70 Asc. Ao 175 AV Gradient Peak 12.25 AV Mean 6.95 AV Area 2.0 MV Gradient Peak 4.59 MV Mean 1.59 MV Area INTERPRETATION: LVd: 3.9 cm LVs: 2.4 cm Doppler: 2-D: COLOR FLOW DOPPLER NORMAL SALINE STUDY: MISCELLANOUS: DIAGNOSIS: PLAN: Talent Acquisition Lead:Renae Montero Aviation Tactical Readiness Officer: Talha HAWK COMMENTS: DATE OF SERVICE: PROCEDURE: Intraoperative JANN. The patient with CABG preoperatively. LV function is normal. Wall motion is normal. Aortic valve is tricuspid with good valve excursion. Postoperative EF remains normal. No evidence of LV dysfunction. No focal wall motion abnormality. TRANSESOPHAGEAL ECHOCARDIOGRAM REPORT [id number] GALO JOE TRANSINT:[id number] Voice Confirmation ID: [id number] DOCUMENT ID: [id number] at 1440 CC: [id number] DICTATION DATE: 04/24/18 1009 WATERWORKS EMPLOYEE: 04/24/18 1159 ADM IN [facility] [address] [place] [address]
--- NOTE | 2018-04-25 15:00 | NUR ---
REPORT RECEIVED FROM MICKI ESCALERA.
--- NOTE | 2018-04-25 17:28 | NUR ---
MEAL TRAY PROVIDED. NO DYSPAGIA NOTED. VSS AT THIS TIME.
[2018-04-26] VITALS (21 sets, daily range): BP systolic 92–122; BP diastolic 33–67
--- NOTE | 2018-04-26 05:20 | NUR ---
UNABLE TO DRAW LAB THIS AM. UNABLE TO GET BLOOD RETURN FROM EITHER PORT AND UNABLE TO FLUSH DISTAL PORT.
[2018-04-26 06:12] LABS: BASOPHILS 0.1 % (0-2); EOSINOPHILS 0.4 % (0-7); HEMATOCRIT 22.8 % (36.0-48.0); HEMOGLOBIN 7.8 g/dL (12-16); IMMATURE GRANULOCYTES 0.4 % (0-5); LYMPHOCYTES 13.5 % (15-50); MCH 29.5 pg (26.0-34.0); MCHC 34.2 g/dL (31.0-37.0); MCV 86.4 fL (80.0-100.0); MEAN PLATELET VOLUME 9.9 fL (7.4-10.4); MONOCYTES 6.6 % (2-11); PLATELET COUNT 166 10x3/uL (130-400); RBC 2.64 10x6/uL (4.00-5.40); RDW 13.8 % (11.5-14.5); WBC 11.4 10x3/uL (4.8-10.8)
[2018-04-26 06:34] LABS: ALKALINE PHOSPHATASE 83 U/L (46-116); BILIRUBIN - TOTAL 0.44 mg/dL (0.2-1.3); CARBON DIOXIDE 26.3 mmol/L (21.0-32.0); CHLORIDE - SERUM 101 mmol/L (98-107); CREATININE - SERUM 0.8 mg/dL (0.6-1.3); POTASSIUM - SERUM 3.8 mmol/L (3.5-5.1); PROTEIN - SERUM 6.1 g/dL (6.4-8.2); SODIUM 136 mmol/L (136-145); UREA NITROGEN 18 mg/dL (7-18); eGFR NON AFRICAN AMERICAN 75 mL/min (90-120)
[2018-04-26 06:37] LABS: ALT (SGPT) 34 U/L (10-68); CALC OSMOLALITY 276 mosm/kg (275-300); GLUCOSE 147 mg/dL (74-106)
--- NOTE | 2018-04-26 07:30 | NUR ---
REPORT RECEIVED FROM THE OFF GOING RN. SEE ASSESSMENT IN THE PTS FLOW SHEET. PT SITTING OOB IN THE BEDSIDE CHAIR. VSS. NSR ON THE MONITOR. PT DENIES PAIN AT THIS TIME. INSTRUCTED THE PT TO USE IS 10X'S/H. PT PULLS ABOUT 500-750. CALL LIGHT IN REACH. WILL CONT POC.
--- NOTE | 2018-04-26 09:15 | NUR ---
PHYSCIAL THERAPY AT THE PTS BEDSIDE. PT AMBULATED ABOUT 275 FEET WITH NO ISSUES. HOOKED BACK TO ICU MONITORS.
--- NOTE | 2018-04-26 11:24 | NUR ---
BEDSIDE COMMODE BY THE PTS CHAIR. PT ABLE TO ASSIST HER SELF WITH SUPERVISION TO VOID WITH A STEADY GAIT. PT TOLERATED WELL. SANIA DRAIN EMPIED. SEE I&O'S
--- NOTE | 2018-04-26 13:51 | NUR ---
PT STATED THAT WHENEVER SHE BURPED, SHE THREW UP A LITTLE BIT. C/O SLIGHT NAUSEA. PRN ZOFRAN GIVEN.
--- NOTE | 2018-04-26 14:42 | NUR ---
PHYSCIAL THEARPY AT THE PTS BEDSIDE AMBULATING WITH THE PT. PT AMBULATED WITH A NORMAL ASTEADY GAIT. NO ISSUES.
--- NOTE | 2018-04-26 18:11 | NUR ---
SUBSTERNAL DRESSING CHANGED. NO S/SX OF INFECTION NOTED. 2 TPM WIRES COILED AND INTACT. DRESSING APPLIED PER ORDERS. RLE DRESSING CHANGED AROUND THE ZEKE SITES. NO S/SX OF INFETION. WELL APPROXIMATED.
--- NOTE | 2018-04-26 19:30 | NUR ---
REPORT RECEIVED. RECEIVED PT SITTING UP IN BEDSIDE CHAIR. AWAKE AND ALERT. ORIENTED X 4. SPEECH CLEAR AND APPROPRIATE. DENIES PAIN. VSS. NO DISTRESS OBSERVED. ASSESSMENT COMPLETED PER FLOW SHEET. MONITORS CONNECTED TO PATIENT WITH ALARMS SET. CALL LIGHT IN REACH.
--- NOTE | 2018-04-26 21:00 | NUR ---
AWAKE AND ALERT. VISITING WITH FAMILY AT BEDSIDE. REFUSES LANTUS INSULIN DUE TO BLOOD SUGAR 136. VSS. NO DISTRESS OBSERVED. CALL LIGHT IN REACH.
--- NOTE | 2018-04-26 22:00 | NUR ---
AWAKE AND ALERT. ASSISTED TO BSC. ASSISTED WITH BATH AND INTO BED. HOB UP 35 DEGREE. REFUSES SCD'S. JUAN WITHOUT DIFF. VSS. CALL LIGHT IN REACH
--- NOTE | 2018-04-26 23:00 | NUR ---
REASSESSMENT COMPLETED PER FLOW SHEET. VSS. NO DISTRESS OBSERVED. CALL LIGHT IN REACH.
[2018-04-27] VITALS (24 sets, daily range): BP systolic 85–169; BP diastolic 28–74
--- NOTE | 2018-04-27 01:00 | NUR ---
RESTING WITH EYES CLOSED. VSS. NO DISTRESS OBSERVED. SR UP X 2. CALL LIGHT IN REACH.
--- NOTE | 2018-04-27 03:18 | NUR ---
RESTING IN BED WITH EYES CLOSED. EASILY ROUSED AND ALERT. ORIENTED X 4. SPEECH CLEAR. DENIES PAIN. REASSESSMENT COMPLETED PER FLOW SHEET WITH NO DISTRESS OBSERVED. VSS. CALL LIGHT IN REACH. SR UP X 2.
[2018-04-27 04:57] LABS: MCH 28.8 pg (26.0-34.0); MCHC 33.3 g/dL (31.0-37.0); MCV 86.4 fL (80.0-100.0); MEAN PLATELET VOLUME 9.9 fL (7.4-10.4); RBC 2.43 10x6/uL (4.00-5.40); RDW 13.8 % (11.5-14.5); WBC 8.6 10x3/uL (4.8-10.8)
[2018-04-27 05:20] LABS: ALBUMIN 2.7 g/dL (3.4-5.0); ALKALINE PHOSPHATASE 74 U/L (46-116); ALT (SGPT) 32 U/L (10-68); BILIRUBIN - TOTAL 0.43 mg/dL (0.2-1.3); CALC OSMOLALITY 279 mosm/kg (275-300); CALCIUM 7.7 mg/dL (8.5-10.1); CARBON DIOXIDE 27.3 mmol/L (21.0-32.0); CHLORIDE - SERUM 103 mmol/L (98-107); CREATININE - SERUM 0.8 mg/dL (0.6-1.3); PROTEIN - SERUM 5.6 g/dL (6.4-8.2); SODIUM 139 mmol/L (136-145); UREA NITROGEN 17 mg/dL (7-18); eGFR NON AFRICAN AMERICAN 75 mL/min (90-120)
[2018-04-27 05:24] LABS: GLUCOSE 99 mg/dL (74-106)
--- NOTE | 2018-04-27 09:40 | NUR ---
Nutrition Follow Up: Chart reviewed. Pt is POD 4 CABG. Diet: ADA PO Intake: 42% meal avg - improving daily BM: 04/16/18 - no BM x 11 days?? Wt gain noted I<O Labs reviewed Meds noted including Lasix, Reglan Rec continue current diet as tolerated. Will continue to honor food preferences. Rec consider bowel regimen. RD following.
--- NOTE | 2018-04-27 21:00 | NUR ---
1900 REPORT RECEIVED CARE ASSUMED. PT LAYING IN BED RESTING. VSS. NO SIGNS OF ACUTE DISTRESS NOTED. ASSESSMENT DONE SEE FLOW SHEET. WILL CONTINUE TO MONITOR. 2100 MEDS GIVEN PER APR. VSS.
[2018-04-28] VITALS (16 sets, daily range): BP systolic 94–124; BP diastolic 43–78
--- NOTE | 2018-04-28 01:00 | NUR ---
2300 REASSESSMENT DONE SEE FLOW SHEET. VSS. NO SIGNS OF ACUTE DISTRESS NOTED. 0100 WATER PROVIDED PER PT REQUEST. VSS. NO SIGNS OF ACUTE DISTRESS NOTED.
--- NOTE | 2018-04-28 05:00 | NUR ---
0300 REASSESSMENT DONE SEE FLOW SHEET. VSS. NO SIGNS OF ACUTE DISTRESS NOTED. 0500 IDEPENDENT BED BATH GIVEN. VSS. NO SIGNS OF ACUTE DISTRESS NOTED. COMPLETE LINEN CHANGE PROVIDED. PT UP TO CHAIR.
[2018-04-28 05:57] LABS: MCH 29.2 pg (26.0-34.0); MCV 85.7 fL (80.0-100.0); MEAN PLATELET VOLUME 9.6 fL (7.4-10.4); RDW 14.2 % (11.5-14.5); WBC 8.6 10x3/uL (4.8-10.8)
[2018-04-28 06:12] LABS: ALBUMIN 2.8 g/dL (3.4-5.0); ALKALINE PHOSPHATASE 74 U/L (46-116); ALT (SGPT) 34 U/L (10-68); BILIRUBIN - TOTAL 0.64 mg/dL (0.2-1.3); CALCIUM 7.9 mg/dL (8.5-10.1); CARBON DIOXIDE 24.4 mmol/L (21.0-32.0); CHLORIDE - SERUM 103 mmol/L (98-107); CREATININE - SERUM 0.8 mg/dL (0.6-1.3); GLUCOSE 123 mg/dL (74-106); POTASSIUM - SERUM 4.4 mmol/L (3.5-5.1); PROTEIN - SERUM 5.7 g/dL (6.4-8.2); SODIUM 139 mmol/L (136-145); eGFR NON AFRICAN AMERICAN 75 mL/min (90-120)
[2018-04-28 06:17] LABS: CALC OSMOLALITY 278 mosm/kg (275-300); UREA NITROGEN 12 mg/dL (7-18)
[2018-04-28 06:18] LABS: HEMATOCRIT 28.2 % (36.0-48.0); HEMOGLOBIN 9.6 g/dL (12-16); RBC 3.29 10x6/uL (4.00-5.40)
--- NOTE | 2018-04-28 10:29 | NUR ---
0830-AMBULATING WITH PHYSICAL THERAPY-PLACED ON TELEMETRY 0900-PT REMAINS ON TELEMETRY TO FACILITATE MOBILITY-COMMODE PLACED WITH EASY REACH-IV DIURETIC GIVEN
--- NOTE | 2018-04-28 12:37 | NUR ---
SITTING UP IN CHAIR-FAMILY AT BEDSIDE
--- NOTE | 2018-04-28 16:30 | NUR ---
1430-DR VOSS AT [facility] AND DISCUSSED POSSIBLE DISCHARGE PLANS WITH PT FOR MONDAY
--- NOTE | 2018-04-28 18:26 | NUR ---
1745-ASSISTED TO RESTROOM-GOWN CHANGED-ASSISTED TO BED -REMOVED FROM TELEMETRY AND PLACED TO OVER HEAD AGXYUOD-KL-RUBB PLACED
[2018-04-29] VITALS (8 sets, daily range): BP systolic 88–114; BP diastolic 35–85
--- NOTE | 2018-04-29 01:00 | NUR ---
1900 REPORT RECEIVED CARE ASSUMED. PT LAYING IN BED RESTING. ASSESSMENT DONE SEE FLOW SHEET. VSS. NO SIGNS OF ACUTE DISTRESS NOTED. 2100 MEDS GIVEN PER APR. VSS. NO DIFFICULTY SWALLOWING NOTED. 230 REASSESSMENT DONE SEE FLOW SHEET. VSS. 0100 WATER GIVEN PER PT REQUEST. VSS. WILL CONTINUE TO MONITOR.
--- NOTE | 2018-04-29 03:00 | NUR ---
REASSESSMENT DONE SEE FLOW SHEET. VSS.
[2018-04-29 06:18] LABS: BASOPHILS 0.3 % (0-2); EOSINOPHILS 2.6 % (0-7); HEMATOCRIT 29.9 % (36.0-48.0); IMMATURE GRANULOCYTES 0.5 % (0-5); LYMPHOCYTES 16.1 % (15-50); MCH 28.8 pg (26.0-34.0); MCHC 33.4 g/dL (31.0-37.0); MCV 86.2 fL (80.0-100.0); MEAN PLATELET VOLUME 9.7 fL (7.4-10.4); NEUTROPHILS 69.5 % (40-80); RBC 3.47 10x6/uL (4.00-5.40); RDW 14.2 % (11.5-14.5); WBC 8.6 10x3/uL (4.8-10.8)
[2018-04-29 06:19] LABS: PLATELET COUNT 261 10x3/uL (130-400)
[2018-04-29 06:27] LABS: ALBUMIN 2.6 g/dL (3.4-5.0); ALKALINE PHOSPHATASE 77 U/L (46-116); ALT (SGPT) 29 U/L (10-68); BILIRUBIN - TOTAL 0.73 mg/dL (0.2-1.3); CALC OSMOLALITY 276 mosm/kg (275-300); CALCIUM 8.1 mg/dL (8.5-10.1); CARBON DIOXIDE 26.4 mmol/L (21.0-32.0); CHLORIDE - SERUM 103 mmol/L (98-107); CREATININE - SERUM 0.7 mg/dL (0.6-1.3); GLUCOSE 128 mg/dL (74-106); POTASSIUM - SERUM 4.3 mmol/L (3.5-5.1); PROTEIN - SERUM 5.7 g/dL (6.4-8.2); SODIUM 138 mmol/L (136-145); UREA NITROGEN 9 mg/dL (7-18); eGFR NON AFRICAN AMERICAN 88 mL/min (90-120)
[2018-04-29] MEDS ORDERED: PLAVIX75 MG PO (10:34)
[2018-04-29] MEDS ORDERED: HEMOCYTE PLUS C1 CAP PO (10:34)
[2018-04-29] MEDS ORDERED: PERCOCET 5-3251 TAB PO (10:34)
--- NOTE | 2018-04-30 09:22 | MORECARE ---
CASE MANAGEMENT DISCHARGE SUMMARY PATIENT: JOSE RAMON JOE CHIP UNIT: [id number] ADM DATE: 04/18/18 AGE: 67 : 49 SEX: F ROOM/BED: D.[facility] AUTHOR: STEVE,DOC PHYSICIAN: REFERRING PHYSICIAN: SARA NÚÑEZ M.D. DATE OF SERVICE: 04/30/18 Discharge Plan Patient Name: JOSE RAMON JOE Facility: [facility]:[place] : 1950 Planned Disposition: Home or Self Care Anticipated Discharge Date: Discharge Date: 04/29/2018 Expected LOS: Initial Reviewer: [email or web address] Initial Review Date: 04/20/2018 Generated: 04/30/18 10:22 am Comments DCP- Discharge Planning Updated by [email or web address]: Alena Zaidi on 04/20/18 8:[address] Patient Name: JOSE RAMON JOE Admission Status: Elective Accout number: [id number] Admission Date: 04-18-2018 : 1950 Admission Diagnosis: Attending: SARA NÚÑEZ Current LOS: 2 Anticipated DC Date: Planned Disposition: Home or Self Care Primary Insurance: MEDICARE A & B Discharge Planning Comments: CM MET IN ROOM WITH PATIENT AND HER NIECE, MINAL, AFTER VERBAL CONSENT WAS OBTAINED IN REGARDS TO DISCHARGE PLANNING. PATIENT LIVES AT HOME ALONE. SHE HAS 2 STEPS IN THE FRONT OF HER HOME, BUT DOES NOT USE THEM. SHE USES THE RAMP IN HER [place]. SHE LISTED THE MEDICAL EQUIPMENT AT HOME THAT BELONGED TO HER LATE SPOUSE, BUT STATED SHE DOES NOT USE IT, AND AT THIS TIME STATED SHE DOES NOT FEEL SHE NEEDS IT. SHE CURRENTLY DOES NOT HAVE ANY COMMUNITY RESOURCES ASSISTING HER, AND DENIES THAT SHE NEEDS ANY AT THIS TIME. CM WILL CONTINUE TO FOLLOW FOR DISCHARGE NEEDS. LEFT MY EXTENTION WITH THE PATIENT IF SHE WERE TO THINK OF ANYTHING SHE NEEDED BEFORE DISCHARE. Cotton Ball Machine Tender: Alena Zaidi RN DCPIA - Discharge Planning Initial Assessment Updated by [id number]: Alena Zaidi on 04/20/18 9:40 am * Is the patient Alert and Oriented? Yes * How many steps to enter\exit or inside your home? 2, RAMP * PCP DR BOSE * [email or web address] * Preadmission Environment Home Alone * ADLs Independent * Equipment Bedside Commode Cane Rolling Walker Shower Chair * Other Equipment ALL EQUIPMENT BELONGED TO HER SPOUSE BEFORE HE PASSED, SHE STATED THAT SHE DOES NOT USE IT, BUT HAS IT IF NEEDED. * List name and contact numbers for known caregivers / representatives who currently or will assist patient after discharge: ROSINA QUARLES, DAUGHTER, ANGELITO MCHUGH, DAUGHTER, AND SON ISHAN JOE JR, OR ZOHAIB FONTAINE (NO PHONE NUMBER) * Verbal permission to speak to the caregivers and representatives has been obtained from the patient. Yes * Community resources currently utilized None * Additional services required to return to the preadmission environment? No * Can the patient safely return to the preadmission environment? Yes * Has this patient been hospitalized within the prior 30 days at any hospital? No Last DP export: 04/20/18 8:54 a Patient Name: JOSE RAMON JOE Page [id number] at 0922 All edits/amendments must be made on the electronic document DICTATION DATE: 04/30/18920 ANALYSIS TESTER: DM 04/30/18920 RPT#: [id number] DC DATE:04/29/18 STATUS: DIS IN [facility] [address] [place] [address] END OF REPORT
== END 2018-04-29 12:58 | disposition home or self-care (01) | DRG 234 ==
LOC: D.CATH 11:23 → D.CVICU 17:18 → D.M2 17:18 → D.CVICU 04-23 07:42
PROVIDERS: Emergency Medicine; Internal Medicine Nephrology; Thoracic Surgery (Cardiothoracic Vascular Surgery); ADMIT Internal Medicine Cardiovascular Disease; ATTEND Internal Medicine Cardiovascular Disease
PROC: B2151ZZ Fluoroscopy of Left Heart using Low Osmolar Contrast (ICD-10-PCS; 2018-04-18)
PROC: 4A023N7 Measurement of Cardiac Sampling and Pressure, Left Heart, Percutaneous Approach (ICD-10-PCS; 2018-04-18)
PROC: B2111ZZ Fluoroscopy of Multiple Coronary Arteries using Low Osmolar Contrast (ICD-10-PCS; principal; 2018-04-18 13:30)
PROC: 02100Z9 Bypass Coronary Artery, One Artery from Left Internal Mammary, Open Approach (ICD-10-PCS; 2018-04-23)
PROC: 021209W Bypass Coronary Artery, Three Arteries from Aorta with Autologous Venous Tissue, Open Approach (ICD-10-PCS; 2018-04-23)
PROC: 06BP0ZZ Excision of Right Saphenous Vein, Open Approach (ICD-10-PCS; 2018-04-23)
PROC: B24BZZ4 Ultrasonography of Heart with Aorta, Transesophageal (ICD-10-PCS; 2018-04-23)
PROC: 5A1221Z Performance of Cardiac Output, Continuous (ICD-10-PCS; 2018-04-23)
DX: I25.110 Atherosclerotic heart disease of native coronary artery with unstable angina pectoris (principal); N39.0 Urinary tract infection, site not specified; D62 Acute posthemorrhagic anemia; B96.20 Unspecified Escherichia coli [E. coli] as the cause of diseases classified elsewhere; I10 Essential (primary) hypertension; E78.5 Hyperlipidemia, unspecified; E11.40 Type 2 diabetes mellitus with diabetic neuropathy, unspecified; F41.8 Other specified anxiety disorders; N39.46 Mixed incontinence

== ENCOUNTER → 2018-05-22 14:40 | Outpatient (CLI) | payer MEDICARE, BC ==
[~2018-05-22 14:40] MED LIST changes: +ASPIRIN81 MG PO; +CELEXA20 MG PO; +CLEOCIN HCL300 MG PO; +HEMOCYTE PLUS C1 CAP PO; +OXYBUTYNIN CHLOR5 MG PO; +PERCOCET 5-3251 TAB PO; +PLAVIX75 MG PO; +SINGULAIR10 MG PO
[2018-05-22 15:23] LABS: HEMATOCRIT 35.9 % (36.0-48.0); HEMOGLOBIN 12.3 g/dL (12-16); MCH 29.6 pg (26.0-34.0); MCHC 34.3 g/dL (31.0-37.0); MCV 86.5 fL (80.0-100.0); MEAN PLATELET VOLUME 9.8 fL (7.4-10.4); RBC 4.15 10x6/uL (4.00-5.40); RDW 13.7 % (11.5-14.5); WBC 5.8 10x3/uL (4.8-10.8)
[2018-05-22 15:48] LABS: ALBUMIN 3.6 g/dL (3.4-5.0); ANION GAP 14.5 mmol/L (8-16); BILIRUBIN - TOTAL 0.29 mg/dL (0.2-1.3); CALCIUM 8.6 mg/dL (8.5-10.1); CARBON DIOXIDE 26.9 mmol/L (21.0-32.0); POTASSIUM - SERUM 3.4 mmol/L (3.5-5.1); PROTEIN - SERUM 6.8 g/dL (6.4-8.2)
== END | disposition home or self-care (01) ==
LOC: D.RAD 14:40
PROVIDERS: Internal Medicine Cardiovascular Disease
DX: J91.8 Pleural effusion in other conditions classified elsewhere (principal); D64.9 Anemia, unspecified

== ENCOUNTER 2018-08-29 07:30 | Inpatient (IN) | payer MEDICARE, BC ==
[2018-08-28 11:08] LABS: HEMATOCRIT 35.5 % (36.0-48.0); HEMOGLOBIN 12.3 g/dL (12-16); MCH 30.1 pg (26.0-34.0); MCHC 34.6 g/dL (31.0-37.0); MCV 86.8 fL (80.0-100.0); MEAN PLATELET VOLUME 10.2 fL (7.4-10.4); RBC 4.09 10x6/uL (4.00-5.40); RDW 13.8 % (11.5-14.5); WBC 4.6 10x3/uL (4.8-10.8)
[2018-08-28 11:19] LABS: CALC OSMOLALITY 282 mosm/kg (275-300); CALCIUM 8.8 mg/dL (8.5-10.1); CARBON DIOXIDE 29.6 mmol/L (21.0-32.0); CHLORIDE - SERUM 104 mmol/L (98-107); CREATININE - SERUM 0.8 mg/dL (0.6-1.3); GLUCOSE 115 mg/dL (74-106); POTASSIUM - SERUM 4.3 mmol/L (3.5-5.1); SODIUM 141 mmol/L (136-145); UREA NITROGEN 16 mg/dL (7-18); eGFR NON AFRICAN AMERICAN 75 mL/min (90-120)
[2018-08-29] VITALS (45 sets, daily range): BP systolic 65–146; BP diastolic 22–89; BMI 32.8; BMI 32.6
[~2018-08-29] VITALS: Ht 157.5 cm; Wt 80.7 kg
[~2018-08-29 07:30] MED LIST changes: -CLEOCIN HCL300 MG PO
[2018-08-29 12:01] LABS: HEMOGLOBIN 10.3 g/dL (12-16)
--- NOTE | 2018-08-29 14:08 | NUR ---
PATIENT BP LOW. AND TRENDING LOW. CHECKED WITH MANUAL 78/42. CHANGED BED PAD UNDERNEATH NOTEBOOK SIZE BLOODY RING. WITH A TOWEL ABOVE IT WITH MODERATE SATURATION. STAT H&H OUMOU CALLED VIA [facility]. ZEKE TOTAL 380. ASA/ [facility] TAKEN MONDAY ACCORDING TO THE PATIENT. NOTIFIED DR COELLO AND HE SAID TO GIVE HER 2 L LR BOLUS. CL IN REACH DAUGHTER IN ROOM. WCTM
--- NOTE | 2018-08-29 14:35 | NUR ---
LR BOLUS CONTINUES. BP 91/40 DRESSING SATURATED AT ZEKE SITE AGAIN. CONTINUES TO LIE IN REFERSE [place]. FAMILY AT BEDSIDE. CALL LIGHT IN REACH
[2018-08-29 15:31] LABS: HEMATOCRIT 25.8 % (36.0-48.0); HEMOGLOBIN 8.8 g/dL (12-16)
--- NOTE | 2018-08-29 20:00 | NUR ---
PT RECIEVED TO 2307 VIA BED. MONITOR EQUIP ESTABLISHED. VSS. DENIES PAIN FIRST UNIT PRBC INFUSING. PIV L AC AND L HAND.
--- NOTE | 2018-08-29 20:23 | NUR ---
2ND UNIT OF PRBC STARTED. 18G PIV STARTED IN R AC PER LALI SANTANA.
--- NOTE | 2018-08-29 20:40 | NUR ---
1 UNIT OF PLATELETS STARTED. 200ML OF BRIGHT RED BLOOD EMPTIED FROM ZEKE SINCE 20:00.
--- NOTE | 2018-08-29 21:15 | NUR ---
DR COELLO NOTIFIED VIA PHONE OF 300ML ZEKE OP SINCE 1999. 2 UNITS OF PRBC AND 1 UNIT OF PLATELETS AND 1 UNIT PLASMA GIVEN. STAT H&H ORDERED. WILL CALL RESULTS TO DR COELLO. PRESSURE DRSG WITH 4X4'S AND FOAM TAPE APPLIED TO ZEKE SITE.
--- NOTE | 2018-08-29 21:40 | NUR ---
OUMOU PAGED REGARDING RECENT LAB
--- NOTE | 2018-08-29 21:44 | NUR ---
REC'D CALLBACK FROM [place], H&H VALUES AND UPDATE PROVIDED, ORDERS GIVEN FOR Q4H H&H.
[2018-08-29 21:45] LABS: HEMATOCRIT 27.2 % (36.0-48.0); HEMOGLOBIN 9.5 g/dL (12-16)
--- NOTE | 2018-08-29 23:00 | NUR ---
OUMOU ORDERED 1 UNIT OF PRBC, TRANSUFION STARTED, NO REACTION NOTED AT THIS TIME. 3RD UNIT TOTAL. REASSESSMENT COMPLETED SEE FLOWSHEET. PT AOX4, NO C/O PAIN AT THIS TIME. ZEKE PRESSURE DRSG INTACT, DRAIN COMPRESSED. PT REPOSITIONED FOR COMFORT. PARTIAL LINEN CHANGE COMPLETE. DENIES FURTHER NEEDS AT THIS TIME. CALL LIGHT AND BEDSIDE TABLE WITHIN PT REACH. CPOC.
[2018-08-30] VITALS (22 sets, daily range): BP systolic 97–138; BP diastolic 49–91; Ht 157.5 cm; Wt 80.7 kg
--- NOTE | 2018-08-30 01:00 | NUR ---
PRBC INFUSION COMPLETE AT THIS TIME. PT RESTING QUIETLY WITH NO COMPLAINTS OF PAIN AT THIS TIME. NO NEW BLEEDING FROM ZEKE SITE, DRSG INTACT, ZEKE COMPRESSED. VSS, PT REPOSITIONED FOR COMFORT. DENIES NEEDS. CALL LIGHT WITHIN PT REACH. CPOC.
[2018-08-30 01:49] LABS: HEMATOCRIT 25.7 % (36.0-48.0); HEMOGLOBIN 9.1 g/dL (12-16)
[2018-08-30 01:56] LABS: PROTIME 13.7 SECONDS (11.6-15.0)
[2018-08-30 02:13] LABS: APTT < 20.0 SECONDS (22.8-39.4)
--- NOTE | 2018-08-30 03:20 | NUR ---
REASSESSMENT COMPLETE, SEE FLOWSHEET FOR ALL FINDINGS. NO C/O PAIN AT THIS TIME. REPOSITIONED FOR COMFORT. VSS. CALL LIGHT WITHIN PT REACH. CPOC.
--- NOTE | 2018-08-30 04:20 | NUR ---
FAMILY AT BEDSIDE, UPDATE PROVIDED AND QUESTIONS ANSWERED.
[2018-08-30 05:03] LABS: HEMATOCRIT 26.7 % (36.0-48.0); HEMOGLOBIN 9.4 g/dL (12-16)
--- NOTE | 2018-08-30 06:43 | NUR ---
OUMOU PAGED REGARDING INCREASE IN ZEKE DRAIN OUTPUT
--- NOTE | 2018-08-30 07:00 | NUR ---
REC'D CALLBACK FROM [place] REGARDING ZEKE OUTPUT OF 170 OVER 10 MINUTES, BP 115/60. NO NEW ORDERS REC'D AT THIS TIME.
--- NOTE | 2018-08-30 07:00 | NUR ---
BEDISDE REPORT AND SHIFT ASSESSMENT COMPLETE. RUQ ZEKE DRAIN, DRESSING CDI AND DRAIN COMPRESSED. L WRIST PIV INFUSING NS @ 75, R AC PIV SALINE LOCKED. NO SIGNS OF DISTRESS, WILL CONTINUE TO MONITOR.
--- NOTE | 2018-08-30 08:30 | NUR ---
ZEKE DRAIN OUTPUT [address] COELLO AT [facility], UPDATE GIVEN AND NEW ORDERS RECEIVED. WILL ADVANCE DIET TOLERATED. FAMILY AT BEDSIDE, UPDATE GIVEN. WILL CONTINUE TO MONITOR.
[2018-08-30 08:39] LABS: ALBUMIN 2.9 g/dL (3.4-5.0); ANION GAP 17.5 mmol/L (8-16); BILIRUBIN - TOTAL 0.49 mg/dL (0.2-1.3); CALCIUM 7.7 mg/dL (8.5-10.1); POTASSIUM - SERUM 4.6 mmol/L (3.5-5.1); PROTEIN - SERUM 4.9 g/dL (6.4-8.2)
[2018-08-30 08:40] LABS: CREATININE - SERUM 1.6 mg/dL (0.6-1.3)
[2018-08-30 08:41] LABS: CARBON DIOXIDE 20.1 mmol/L (21.0-32.0)
--- NOTE | 2018-08-30 09:00 | NUR ---
ATE 100% OF BREAKFAST, FAMILY AT BEDSIDE. WILL CONTINUE TO MONITOR.
--- NOTE | 2018-08-30 11:00 | NUR ---
REASSESSMENT COMPLETE, ZEKE DRAIN OUTPUT 60 ML. VSS, CALL LIGHT IN REACH.
[2018-08-30 12:35] LABS: HEMATOCRIT 24.3 % (36.0-48.0); HEMOGLOBIN 8.8 g/dL (12-16)
--- NOTE | 2018-08-30 13:00 | NUR ---
DR COELLO GIVEN UPDATE ON LAB RESULTS, FAMILY AT BEDSIDE. NO NEEDS AT THIS TIME WILL CONTINUE TO MONITOR.
--- NOTE | 2018-08-30 13:15 | NUR ---
PAIN 09/15, MEDS GIVEN PER APR. NEW ORDERS GIVEN PER DR COELLO.
--- NOTE | 2018-08-30 14:43 | NUR ---
TRANSFER TO ROOM 2202. FAMILY NOT AT BEDSIDE, WILL CALL AND GIVE UPDATE.
--- NOTE | 2018-08-30 15:09 | NUR ---
PATIENT ADMITTED TO ROOM 2202.
--- NOTE | 2018-08-30 17:12 | NUR ---
20 gauge iv started in right arm x1 stick. +blood return flushed without difficulty, no edema or redness noted. secured with tegaderm and ivf restarted at 30cc/hr infusing with abx. pt denies any pain at site
--- NOTE | 2018-08-30 18:20 | NUR ---
PATIENT RESTING IN BED. DENIES PAIN. DENIES NEEDS. STATES WANTS TO TAKE ATIVAN TONIGHT WITH EVENING MEDS. BED LOW. CALL GREEN AND PERSONAL ITEMS IN REACH.
--- NOTE | 2018-08-30 19:30 | NUR ---
PT RESTING WITH UNLABORED RESPIRATIONS AND EYES CLOSED WHEN ENTERING THE ROOM. NO DISTRESS NOTED. SON AT BEDSIDE. STATES "SHE HAS BEEN EXHAUSTED." RIGHT FOREARM IV THAT IS PATENT WITH 20 G. ZEKE DRAIN TO THE RIGHT UPPER ABDOMEN THAT IS COMPRESSED WITH MINIMAL BLOODY DRAINAGE NOTED. LAP SITES APPEAR CLEAN X 3. CPOC.
--- NOTE | 2018-08-30 21:55 | NUR ---
PT ALERT AND ORIENTED WHEN IN THE ROOM. PT REQUESTS ATIVAN. PROVIDED WITH OTHER HS MEDICATIONS. TOLERATING WELL. OBTAINING MANUAL PRESSURES FOR FLOW SHEET AUTOMATIC CUFF IS NOT READING BP'S CORRECTLY. PATIENT HAS CALL LIGHT IN REACH. SON REMAINS AT BEDSIDE AND STATES HE WILL BE STAYING THROUGH OUT THE EVENING. CPOC.
[2018-08-31] VITALS (11 sets, daily range): BP systolic 93–160; BP diastolic 36–87
--- NOTE | 2018-08-31 04:39 | NUR ---
I have reviewed this patient and I concur with the Shift Assessment completed by the Licensed Practical Nurse today this shift.
[2018-08-31 05:57] LABS: BASOPHILS 0.2 % (0-2); EOSINOPHILS 0.6 % (0-7); IMMATURE GRANULOCYTES 0.3 % (0-5); LYMPHOCYTES 14.8 % (15-50); MCH 30.5 pg (26.0-34.0); MCHC 35.8 g/dL (31.0-37.0); MCV 85.2 fL (80.0-100.0); MEAN PLATELET VOLUME 9.9 fL (7.4-10.4); MONOCYTES 8.6 % (2-11); NEUTROPHILS 75.5 % (40-80); RBC 2.23 10x6/uL (4.00-5.40); RDW 14.8 % (11.5-14.5)
[2018-08-31 05:59] LABS: PLATELET COUNT 168 10x3/uL (130-400)
[2018-08-31 06:00] LABS: HEMOGLOBIN 6.8 g/dL (12-16)
--- NOTE | 2018-08-31 06:23 | NUR ---
RECEIVED ORDER TO TRANSFUSE 2 UNITS OF PRBC'S NOW. ONE UNIT READY IN BLOOD BANK ALREADY.
[2018-08-31 06:30] LABS: ALBUMIN 2.7 g/dL (3.4-5.0); ANION GAP 15.6 mmol/L (8-16); BILIRUBIN - TOTAL 0.37 mg/dL (0.2-1.3); CALCIUM 7.5 mg/dL (8.5-10.1); CARBON DIOXIDE 21.3 mmol/L (21.0-32.0); CREATININE - SERUM 1.3 mg/dL (0.6-1.3); POTASSIUM - SERUM 3.9 mmol/L (3.5-5.1)
--- NOTE | 2018-08-31 08:34 | NUR ---
AWAKE AND ALERT. ORIENTED X3. SITTING UP ON SIDE OF BED EATING BREAKFAST. FAMILY AT BEDSIDE. LUNGS ARE CLEAR BILATERALLY, NO COUGH NOTED. SKIN IS INTACT WITHOUT REDNESS EXCEPT INSERTION SITES TO ABDOMEN, WHICH ARE CLEAN AND DRY. ZEKE PATENT WITH BLOODY DRAINAGE. IV TO RIGHT FOREARM IS PATENT WITHOUT REDNESS AT INSERTION SITE. DENIES NEEDS.
--- NOTE | 2018-08-31 09:00 | NUR ---
FIRST UNIT PRBC COMPLETED WITHOUT REACTIONS. VSS. DENIES NEEDS.
--- NOTE | 2018-08-31 10:10 | NUR ---
SECOND UNIT PRBC UP AT THIS TIME. VSS. SON AT BEDSIDE.
--- NOTE | 2018-08-31 11:10 | NUR ---
TRANSFUSION CONTINUES WITHOUT COMPLICATIONS. VSS.
--- NOTE | 2018-08-31 13:35 | NUR ---
TRANSFUSION COMPLETED. VSS. DENIES NEEDS. FAMILY AT BEDSIDE.
[2018-08-31 14:17] LABS: HEMATOCRIT 27.7 % (36.0-48.0); HEMOGLOBIN 9.8 g/dL (12-16)
--- NOTE | 2018-08-31 18:37 | NUR ---
SHOWERED WITH DAUGHTERS ASSISTANCE. DRESSING TO RIGHT ABDOMEN CHANGED AFTER SHOWER. DENIES NEEDS. IS HOLDING ON TO SUPPER TRAY FOR LATER. DENIES NEEDS. NO CHAGES NOTED.
[2018-08-31 19:47] LABS: HEMATOCRIT 24.3 % (36.0-48.0); HEMOGLOBIN 8.6 g/dL (12-16)
--- NOTE | 2018-08-31 20:00 | NUR ---
EMPTIED 50 MLS BLOODY DRAINAGE FROM ZEKE DRAIN. DRESSING C/D/I. ASSISTED PT UP TO BATHROOM TO VOID AND BACK TO BED. ASSESSMENT COMPLETE PER FLOW-SHEET. NO OTHER NEEDS. WILL CONTINUE TO MONITOR.
--- NOTE | 2018-08-31 21:55 | NUR ---
LAB CALLED, PLASMA READY. PLASMA RETRIEVED FROM LAB AND INFUSION STARTED AT 2230. VITALS SIGNS STABLE. PLASMA INFUSION COMPLETED AT 2250. FLUSHED LINE AND HUNG SCHEDULED ANTIBIOTIC. PRBC TO BE HUNG AFTER ANTIBIOTIC INFUSED IN 30 MINUTES.
[2018-09-01] VITALS (9 sets, daily range): BP systolic 98–138; BP diastolic 36–58
--- NOTE | 2018-09-01 00:10 | NUR ---
RETRIEVED UNIT PRBC'S FROM LAB AND STARTED INFUSING. VITAL SIGNS STABLE. INCREASED RATE AFTER 15 MINUTES. VITALS SIGNS REMAIN STABLE. WILL CONTINUE TO MONITOR.
[2018-09-01 03:40] LABS: HEMATOCRIT 27.2 % (36.0-48.0); HEMOGLOBIN 9.6 g/dL (12-16)
--- NOTE | 2018-09-01 09:00 | NUR ---
PT AAOX4 RESP EVEN AND NONLABORED, NO SIGNS OF DISTRESS NOTED, NO NEEDS EXPRESSED FAMILY AT BEDSIDE CL IN REACH
--- NOTE | 2018-09-01 09:25 | NUR ---
PT OUT OF SHOWER ZEKE DRAIN REMOVED PER ORDERS WITH 70CC BLOODY OUTPUT EMPTIED, DRESSING APPLIED TO SITE C/D/I, TOLARTED W/O COMPLAINT WILL CONTINUE TO MONITOR CL IN REACH
[2018-09-01 10:16] LABS: HEMOGLOBIN 10.8 g/dL (12-16)
[2018-09-01 17:39] LABS: HEMATOCRIT 31.3 % (36.0-48.0); HEMOGLOBIN 10.9 g/dL (12-16)
--- NOTE | 2018-09-01 18:05 | NUR ---
I have reviewed this patient and I concur with the Shift Assessment completed by the Licensed Practical Nurse today this shift.
--- NOTE | 2018-09-01 22:00 | NUR ---
PT ALERT & ORIENTED. PT C/O PAIN 07/16. GAVE 1 TAB NORCO-5 PO AND SCHEDULED MEDS. CHANGED DRESSING AT FORMER ZEKE SITE, DOES NOT APPEAR TO BE ACTIVELY DRAINING. FSBS 137 - NO INSULIN PER SS. NO OTHER NEEDS. WILL REASSESS AND CONTINUE TO MONITOR.
[2018-09-02] VITALS: BP 116/50
[2018-09-02 04:00] VITALS: BP 106/45
[2018-09-02 05:51] LABS: HEMATOCRIT 28.7 % (36.0-48.0)
[2018-09-02 06:08] LABS: ANION GAP 13.7 mmol/L (8-16); CALCIUM 7.6 mg/dL (8.5-10.1); CARBON DIOXIDE 23.1 mmol/L (21.0-32.0); CREATININE - SERUM 0.9 mg/dL (0.6-1.3); POTASSIUM - SERUM 3.8 mmol/L (3.5-5.1)
[2018-09-02] MEDS ORDERED: HYDROCODON-ACE1 EAC7 PO (08:27)
--- NOTE | 2018-09-02 09:00 | NUR ---
ALERT AND ORIENTED WITH DRESSING INTACT TO RUQ OF ABDOMEN. BS NOTED X4 GOOD ROM OF EXT. X4 AND DENIES ANY PAIN OR DISCOMFORT AT THIS TIME WOTH FAMILY PRESSENT. ENCOURAGED TO USE CALL LIGHT FOR ASSIST.
[2018-09-02 09:15] VITALS: BP 120/58
--- NOTE | 2018-09-02 10:30 | NUR ---
OV DISCONTINUED WITH PATIENT DISCHARGED UNDER CARE OF DAUGHTER. VERBALIZED UNDERSTANDING OF DISCHARGE INSTRUCTIONS. STABLE AT TIME OF DEPARTURE.
== END 2018-09-02 10:30 | disposition home or self-care (01) | DRG 418 ==
LOC: D.OPS 07:30 → D.PAN 09:45 → D.OPS 09:45 → D.MS 11:26 → D.OPS 11:27 → D.ICU 11:28 → OBSVTIME 11:28 → D.ICU 11:28 → D.MS 20:06 → D.ICU 20:06 → D.MS 08-30 15:08
PROVIDERS: Anesthesiology; ADMIT Surgery; ATTEND Surgery
PROC: 0FT44ZZ Resection of Gallbladder, Percutaneous Endoscopic Approach (ICD-10-PCS; principal; 2018-08-29 09:45)
DX: K80.80 Other cholelithiasis without obstruction (principal); D62 Acute posthemorrhagic anemia

== ENCOUNTER 2018-09-02 20:02 | Emergency (ER) | payer MEDICARE, BC ==
[~2018-09-02] VITALS: Ht 157.5 cm; Wt 81.2 kg
[2018-09-02 20:08] VITALS: Ht 157.5 cm; Wt 81.2 kg
[2018-09-02 20:43] LABS: BASOPHILS 0.3 % (0-2); EOSINOPHILS 1.7 % (0-7); HEMATOCRIT 30.9 % (36.0-48.0); HEMOGLOBIN 10.9 g/dL (12-16); IMMATURE GRANULOCYTES 0.3 % (0-5); LYMPHOCYTES 11.6 % (15-50); MCH 29.7 pg (26.0-34.0); MCHC 35.3 g/dL (31.0-37.0); MCV 84.2 fL (80.0-100.0); MEAN PLATELET VOLUME 9.5 fL (7.4-10.4); MONOCYTES 10.3 % (2-11); NEUTROPHILS 75.8 % (40-80); RBC 3.67 10x6/uL (4.00-5.40); RDW 13.8 % (11.5-14.5); WBC 6.6 10x3/uL (4.8-10.8)
[2018-09-02 20:46] LABS: PLATELET COUNT 237 10x3/uL (130-400)
[2018-09-02 20:54] LABS: APTT 28.1 SECONDS (22.8-39.4); INR 1.08 (0.85-1.17); PROTIME 13.5 SECONDS (11.6-15.0)
[2018-09-02 21:02] LABS: ALBUMIN 2.8 g/dL (3.4-5.0); ALKALINE PHOSPHATASE 88 U/L (46-116); ALT (SGPT) 37 U/L (10-68); BILIRUBIN - TOTAL 0.77 mg/dL (0.2-1.3); CALC OSMOLALITY 264 mosm/kg (275-300); CALCIUM 7.9 mg/dL (8.5-10.1); CHLORIDE - SERUM 101 mmol/L (98-107); CREATININE - SERUM 0.8 mg/dL (0.6-1.3); GLUCOSE 152 mg/dL (74-106); POTASSIUM - SERUM 3.9 mmol/L (3.5-5.1); PROTEIN - SERUM 5.7 g/dL (6.4-8.2); SODIUM 131 mmol/L (136-145); UREA NITROGEN 11 mg/dL (7-18); eGFR NON AFRICAN AMERICAN 75 mL/min (90-120)
[2018-09-02 22:33] VITALS: BP 145/54
== END 2018-09-02 22:33 | disposition home or self-care (01) ==
LOC: D.ER 20:02
PROVIDERS: Family Medicine
DX: T81.31XA Disruption of external operation (surgical) wound, not elsewhere classified, initial encounter (principal); L76.32 Postprocedural hematoma of skin and subcutaneous tissue following other procedure; Y83.8 Other surgical procedures as the cause of abnormal reaction of the patient, or of later complication, without mention of misadventure at the time of the procedure; E11.9 Type 2 diabetes mellitus without complications; I10 Essential (primary) hypertension; I25.10 Atherosclerotic heart disease of native coronary artery without angina pectoris

== ENCOUNTER 2018-09-07 11:11 | Inpatient (IN) | payer MEDICARE, BC ==
[~2018-09-07] VITALS: Ht 157.5 cm; Wt 85.7 kg
--- NOTE | 2018-09-07 12:17 | NUR ---
ARRIVED TO RROM 2237 AWAKE AND ALERT. RESP EVEN AND UNLABORED WITH NO DISTRESS NOTED. CAN EXPRESS NEEDS AND WANTS. NO C/O NOTED OR VOICED. DENIES ANY PAIN OR DISCOMFORT AT THIS TIME. WILL CONTINUE TO OBSERVE FOR NEEDS. DAUGHTER AND C/L IN REACH AT BEDSIDE.
[2018-09-07 12:41] LABS: BASOPHILS 0.1 % (0-2); EOSINOPHILS 0.6 % (0-7); HEMATOCRIT 37.6 % (36.0-48.0); HEMOGLOBIN 13.2 g/dL (12-16); IMMATURE GRANULOCYTES 0.3 % (0-5); LYMPHOCYTES 10.1 % (15-50); MCH 30.3 pg (26.0-34.0); MCHC 35.1 g/dL (31.0-37.0); MCV 86.4 fL (80.0-100.0); MEAN PLATELET VOLUME 9.9 fL (7.4-10.4); MONOCYTES 10.7 % (2-11); NEUTROPHILS 78.2 % (40-80); RBC 4.35 10x6/uL (4.00-5.40); RDW 13.9 % (11.5-14.5); WBC 8.8 10x3/uL (4.8-10.8)
[2018-09-07 12:44] LABS: PLATELET COUNT 406 10x3/uL (130-400)
[2018-09-07 12:56] LABS: ALBUMIN 2.9 g/dL (3.4-5.0); ANION GAP 15.5 mmol/L (8-16); BILIRUBIN - TOTAL 1.57 mg/dL (0.2-1.3); CARBON DIOXIDE 26.8 mmol/L (21.0-32.0); CREATININE - SERUM 0.9 mg/dL (0.6-1.3); POTASSIUM - SERUM 3.3 mmol/L (3.5-5.1); PROTEIN - SERUM 6.4 g/dL (6.4-8.2)
[2018-09-07 13:04] VITALS: BP 103/61
--- NOTE | 2018-09-07 14:30 | NUR ---
NG TUBE DROPPED TO RIGHT NARE AT THIS TIME WITH 16F GASTRIC TUBE TO LIWS. TOLERATED WELL. NO C/O NOTED OR VOICED. C/L IN REACH AT BEDSIDE.
[2018-09-07 15:43] VITALS: BMI 34.6
[2018-09-07 17:20] VITALS: BP 150/58
[2018-09-07 19:52] VITALS: BP 123/56
--- NOTE | 2018-09-07 20:28 | NUR ---
IN BED WITH IV TO LEFT WRIST PATENT WITH FLUIDS AND MEDICATION INFUSING PER ORDERS. FAMILY PRESENT. EXPRESSED CONCERNS OF NOT SLEEPING WELL, MACHINE TOOL TECHNICIAN INSTRUCTOR CUSHION MAKER NOTIFIED AND PRESENTLY CONVERSING WITH PATIENT. WILL NOTE ANY CHANGE.
--- NOTE | 2018-09-08 01:42 | NUR ---
RESTING IN BED QUIETLY, EYES CLOSED. NG SUCTION ON LOW INTERMITTENT WITH RESULTS IN CANNISTER, SHOWS NO S/S OF ANY DISTRESS AT THIS TIME. WILL NOTE ANY CHANGE.
--- NOTE | 2018-09-08 03:04 | NUR ---
I have reviewed this patient and I concur with the Shift Assessment completed by the Licensed Practical Nurse today this shift.
--- NOTE | 2018-09-08 03:47 | NUR ---
I have reviewed this patient and I concur with the Shift Assessment completed by the Licensed Practical Nurse today this shift.
[2018-09-08 04:21] VITALS: BP 130/76
[2018-09-08 05:55] LABS: ALBUMIN 2.2 g/dL (3.4-5.0); ALKALINE PHOSPHATASE 125 U/L (46-116); BILIRUBIN - TOTAL 1.06 mg/dL (0.2-1.3); CALC OSMOLALITY 289 mosm/kg (275-300); CALCIUM 8.1 mg/dL (8.5-10.1); CARBON DIOXIDE 27.4 mmol/L (21.0-32.0); CHLORIDE - SERUM 106 mmol/L (98-107); CREATININE - SERUM 0.8 mg/dL (0.6-1.3); GLUCOSE 192 mg/dL (74-106); MAGNESIUM - SERUM 1.6 mg/dL (1.8-2.4); PHOSPHOROUS 2.8 mg/dL (2.5-4.9); SODIUM 142 mmol/L (136-145); UREA NITROGEN 18 mg/dL (7-18); eGFR NON AFRICAN AMERICAN 75 mL/min (90-120)
[2018-09-08 05:57] LABS: ALT (SGPT) 57 U/L (10-68)
[2018-09-08 06:07] LABS: APTT 26.9 SECONDS (22.8-39.4)
[2018-09-08 06:08] LABS: INR 1.09 (0.85-1.17); PROTIME 13.6 SECONDS (11.6-15.0)
--- NOTE | 2018-09-08 06:58 | NUR ---
MAGNESIUM LEVEL OF 1.6 TREATED PER ELECTROLYTE PROTOCOL. WILL NOTE ANY CHANGE.
--- NOTE | 2018-09-08 07:35 | NUR ---
PT RESTING QUIETLY IN BED. NO ACUTE DISTRESS NOTED. NG TUBED IN PLACE TO LEFT NARE TO LOW INTERMITTENT SUCTIONING, DRAINING LIGHT BROWN DRAINAGE. SCANT AMOUNT DRAINAGE NOTED IN CANISTER AT THIS TIME. PT DENIES PAIN AT THIS TIME. VOICES LESSENED "GASSY" FEELING AT THIS TIME. IV TO LEFT WRIST WITH D5W @ 100ML/HR, PROTONIX @ 10ML/HR BOTH INFUSING VIA PUMP. SITE WITHOUT REDNESS OR EDEMA. DISCUSSED WITH PT LOW POTASSIUM LEVEL THE LEVEL OF HER POTASSIUM AT 3.0 AND NEED FOR POTASSIUM REPLACEMENT. EDUCATED PT REGARDING POTASSIUM REPLACEMENT AT THIS TIME. PT DENIES ANY QUESTIONS. PT DENIES FURTHER QUESTIONS AT THIS TIME. CL WITHIN REACH. ENCOURAGED TO CALL WITH NEEDS. CONTINUE POC
[2018-09-08 10:07] VITALS: BP 121/56
[2018-09-08 11:05] VITALS: BMI 34.6
[2018-09-08 13:28] VITALS: BP 121/45
--- NOTE | 2018-09-08 19:24 | NUR ---
GREETED PATIENT AND INTRODUCED MYSELF. PATIENT IS LAYING IN BED IN SUPINE POSITION WITH NG TUBE IN PLACE. PT. STATES THAT SHE IS NOT IN PAIN AT THIS TIME. RESPIRATONS EVEN. NO S/S OF DISTRESS. CALL LIGHT IN REACH.
[2018-09-08 19:45] VITALS: BP 144/74
[2018-09-08 19:56] VITALS: Ht 157.5 cm; Wt 85.7 kg
--- NOTE | 2018-09-08 20:30 | NUR ---
DRESSED PATIENTS LEFT ABDOMEN FROM PROBE SITE. PATIENT STARTED BLEEDING FROM SITE. APPLIED 4X4'S, PRESSURE TAPE AND TEGADERM TO SITE. WCTM.
--- NOTE | 2018-09-08 21:46 | NUR ---
PREVIOUS DRESSING SATURATED WITH BLOOD FROM PREVIOUS ZEKE SITE ON RIGHT ABDOMEN. CLEANED SITE AND REDRESSED USING FOLDED 4X4'S AND PRESSURE TAPE.
--- NOTE | 2018-09-08 21:50 | NUR ---
SPOKE WITH DR. LOVETT AND TOLD HIM OF PATIENTS ZEKE SITE BLEEDING. DR. LOVETT INSTRUCTED TO KEEP DRESSING ON AND FOLLOW UP WITH TOWELS. FURTHER INSTRUCTED TO ORDER A STAT CBC AND TO CALL HIM BACK IF HBG WAS LESS THAN 30.
[2018-09-08 22:15] LABS: BASOPHILS 0.2 % (0-2); EOSINOPHILS 1.4 % (0-7); HEMATOCRIT 34.5 % (36.0-48.0); HEMOGLOBIN 11.9 g/dL (12-16); IMMATURE GRANULOCYTES 0.3 % (0-5); LYMPHOCYTES 11.7 % (15-50); MCH 30.1 pg (26.0-34.0); MCHC 34.5 g/dL (31.0-37.0); MCV 87.1 fL (80.0-100.0); MEAN PLATELET VOLUME 9.3 fL (7.4-10.4); NEUTROPHILS 79.4 % (40-80); PLATELET COUNT 361 10x3/uL (130-400); RBC 3.96 10x6/uL (4.00-5.40)
--- NOTE | 2018-09-08 23:35 | NUR ---
REMOVED AND REDRESSED ZEKE DRAIN SITE. CLEANED SITE AND REDRESSED WITH 4X4'S, TAPE, BORDER DRESSING, AND TEGADERM/
[2018-09-09] VITALS (12 sets, daily range): BP systolic 107–143; BP diastolic 48–65
--- NOTE | 2018-09-09 02:17 | NUR ---
PT. RESTING QUIETLY WITH EYES CLOSED. RESPIRATIONS EVEN. NO S/S OF DISTRESS. CURRENTLY RUNNING #3 OF 4 OF POTASSIUM REPLACEMENT FOR LOW POTASSIUM OF 3.4.
--- NOTE | 2018-09-09 07:15 | NUR ---
PT RESTING IN BED WATCHING TV. NO ACUTE DISTRESS NOTED. DENIES PAIN AT THIS TIME. NG TUBE TO RIGHT NARE WITH LIGHT BROWN DRAINAGE NOTED. PT DENIES NAUSEA AT THIS TIME. PT VOICES UPCOMING SURGERY AND REMAINING NPO. DENIES QUESTIONS AT THIS TIME. IV TO LEFT WRIST WITH D5NS @ 100ML/HR INFUSING VIA PUMP. SITE WITHOUT REDNESS OR EDEMA. DENIES FURTHER NEEDS AT THIS TIME. CL WITHIN REACH. ENCOURAGED TO CALL WITH NEEDS. CONTINUE POC
[2018-09-09 08:03] LABS: ALBUMIN 2.3 g/dL (3.4-5.0); ALKALINE PHOSPHATASE 119 U/L (46-116); ALT (SGPT) 43 U/L (10-68); BILIRUBIN - TOTAL 0.79 mg/dL (0.2-1.3); CALCIUM 7.9 mg/dL (8.5-10.1); CARBON DIOXIDE 24.3 mmol/L (21.0-32.0); CHLORIDE - SERUM 110 mmol/L (98-107); CREATININE - SERUM 0.7 mg/dL (0.6-1.3); GLUCOSE 164 mg/dL (74-106); MAGNESIUM - SERUM 1.8 mg/dL (1.8-2.4); PHOSPHOROUS 2.2 mg/dL (2.5-4.9); POTASSIUM - SERUM 3.3 mmol/L (3.5-5.1); PROTEIN - SERUM 5.3 g/dL (6.4-8.2); SODIUM 143 mmol/L (136-145); eGFR NON AFRICAN AMERICAN 88 mL/min (90-120)
[2018-09-09 08:05] LABS: CALC OSMOLALITY 287 mosm/kg (275-300); UREA NITROGEN 11 mg/dL (7-18)
--- NOTE | 2018-09-09 13:10 | NUR ---
PT RECEIVED FROM RECOVERY VIA BED WITH EYES CLOSED. EASILY AROUSED WITH NAME CALLED. NG TUBE REMAINS INTACT TO RIGHT NARE. MIDLINE DRESSING C/D/I. DENIES PAIN AT THIS TIME. CL WITHIN REACH. WILL CONTINUE TO MONITOR.
--- NOTE | 2018-09-09 19:30 | NUR ---
SUPINE IN BED, A&O. DRESSING OVER MIDLINE INCISION TO ABDOMEN C/D/I. DENIES PAIN, NO NEEDS AT THIS TIME, WILL CONTINUE TO MONITOR.
--- NOTE | 2018-09-10 01:00 | NUR ---
I have reviewed this patient and I concur with the Shift Assessment completed by the Licensed Practical Nurse today this shift.
[2018-09-10 02:12] VITALS: BP 120/50
[2018-09-10 05:26] VITALS: BP 118/55
[2018-09-10 06:09] LABS: BASOPHILS 0.2 % (0-2); EOSINOPHILS 1.6 % (0-7); HEMATOCRIT 32.2 % (36.0-48.0); HEMOGLOBIN 10.8 g/dL (12-16); IMMATURE GRANULOCYTES 0.2 % (0-5); LYMPHOCYTES 8.9 % (15-50); MCH 29.8 pg (26.0-34.0); MCHC 33.5 g/dL (31.0-37.0); MONOCYTES 6.3 % (2-11); NEUTROPHILS 82.8 % (40-80); PLATELET COUNT 364 10x3/uL (130-400); RBC 3.62 10x6/uL (4.00-5.40); RDW 14.4 % (11.5-14.5); WBC 10.9 10x3/uL (4.8-10.8)
[2018-09-10 06:27] LABS: ALKALINE PHOSPHATASE 115 U/L (46-116); ALT (SGPT) 38 U/L (10-68); BILIRUBIN - TOTAL 0.55 mg/dL (0.2-1.3); CALC OSMOLALITY 290 mosm/kg (275-300); CALCIUM 7.6 mg/dL (8.5-10.1); CARBON DIOXIDE 25.9 mmol/L (21.0-32.0); CHLORIDE - SERUM 112 mmol/L (98-107); CREATININE - SERUM 0.7 mg/dL (0.6-1.3); GLUCOSE 158 mg/dL (74-106); MAGNESIUM - SERUM 1.8 mg/dL (1.8-2.4); PHOSPHOROUS 2.7 mg/dL (2.5-4.9); POTASSIUM - SERUM 3.4 mmol/L (3.5-5.1); PROTEIN - SERUM 4.8 g/dL (6.4-8.2); SODIUM 145 mmol/L (136-145); UREA NITROGEN 10 mg/dL (7-18); eGFR NON AFRICAN AMERICAN 88 mL/min (90-120)
[2018-09-10 06:29] LABS: TROPONIN-I < 0.017 ng/mL (0.000-0.060)
[2018-09-10 09:02] VITALS: BP 105/52
--- NOTE | 2018-09-10 09:35 | OP ---
PATIENT NAME: JOSE RAMON JOE MEDICAL RECORD: [id number] :48 LOCATION:[id number] ADMISSION DATE:09/07/18 SURGEON: LUZ LOVETT MD DATE OF OPERATION: 09/09/2018 PREOPERATIVE DIAGNOSES: 1. Recent laparoscopic cholecystectomy. 2. Small bowel obstruction. 3. Ventral hernia repair containing small bowel. POSTOPERATIVE DIAGNOSES: 1. Incarcerated incisional hernia containing small bowel with 2 seromyotomies. 2. Recent laparoscopic cholecystectomy. PROCEDURES: Open incarcerated incisional hernia repair without mesh and repair of seromyotomies times 2. SURGEON: Luz Lovett MD [address] VENDOR: None. BLOOD LOSS: 50 cc. ANESTHESIA: General. COMPLICATIONS: None. The risks, possible complications, and alternatives to the procedure were explained to the patient. She elects to proceed. The discussion specifically included, but was not limited to, bleeding, requiring emergency reoperation; infection; possible need for small bowel resection. OPERATIVE FINDINGS: Operative findings are equivocal. The patient has a lower midline incision. This hernia was located to the right of this midline incision. The patient's umbilical trocar site was superior to the umbilicus and this hernia defect was not only inferior to the umbilicus, but also to the right of the umbilicus. I felt the site where the trocar entered the abdomen and identified no hernia at that site. This was, as I said, inferior and to the right of the trocar site. I am at a loss to explain why the patient developed hernia here. Certainly from a time standpoint, one would think that it is related to the patient's recent laparoscopic cholecystectomy. However, it was clearly away from any of the trocar sites. The patient had 2 seromyotomies. No full-thickness enterotomies. The bowel was viable. I checked and the bowel pinked up once I enlarged the hernia defect. I also checked for arterial flow with the handheld Doppler and there was good Doppler signal, indicating arterial flow. OPERATIVE COURSE: The patient was conveyed to the operating room electively on 09/09/2018. General anesthesia was induced by the anesthesia staff. The abdomen was sterilely prepped and draped. A right paramedian incision was accomplished inferior to the umbilicus and to the right of the patient's lower midline scar, which was from a prior hysterectomy. I dissected down to the hernia sac, which was a mature sac. This again would cause me to think that this hernia defect was not related to the patient's OPERATIVE REPORT [id number] JOSE RAMON JOE recent cholecystectomy. I entered the hernia sac sharply. I identified the small bowel. I was able to deliver some more small bowel out through the hernia defect. I opened the hernia defect in a cephalad direction over a hemostat to prevent any injury to the small bowel. The small bowel began to pink up. I checked for Doppler signal with the handheld Doppler and I checked this through the antimesenteric border of the small bowel and throughout the entire portion of the small bowel, which was incarcerated. There was good arterial Doppler signal. There were 2 seromyotomies. One was closed with a row of interrupted 3-0 Vicryl sutures, which were imbricating sutures. The other one was closed with a single firing of the TA-30 stapler with the mucosa deep to this firing of the TA-30 stapler, which was a tangential firing. I then moved some of these small bowel contents between my 2 fingers in order to ensure that there was no leakage. Indeed, there had been no leakage of enteral contents. There was thin brownish fluid in the abdomen. This was aspirated. I returned the small bowel to the abdominal cavity. I ensured that there were no adhesions around the hernia defect. I felt the umbilical trocar site from inside the peritoneal cavity and I identified no evidence of a hernia at this site. I then sharply cleaned the edges of the hernia with a pair of Grant scissors. I felt that the synthetic mesh was contraindicated due to the patient's recent cholecystectomy. The herniorrhaphy was accomplished with multiple interrupted horizontal mattress #1 Vicryls. I then overran the hernia repair with running 2-0 Prolene. I irrigated in the subcutaneous tissues with normal saline. The deep adipose tissue was closed with interrupted 3-0 Vicryls. The subcutaneous adipose tissue was closed with interrupted 3-0 Vicryls. The skin was approximated with metallic clips. The patient was then extubated and conveyed to the post-anesthesia care unit, where she was in stable condition. TRANSINT:[id number] Voice Confirmation ID: [id number] DOCUMENT ID: [id number] LUZ LOVETT MD at 0935 CC: LOUANN BOSE and ISHAN COELLO MD [id number] DICTATION DATE: 09/09/18 1329 STEAMING CABINET TENDER: 09/09/18 1738 ADM IN [place] [id number] [place] [id number]
--- NOTE | 2018-09-10 11:45 | NUR ---
CARSON CATH REMOVED AT THIS TIME WITH 100CC NOTED TO COLLECTION DEVICE. C/L IN REACH AT BEDSIDE.
--- NOTE | 2018-09-10 12:46 | NUR ---
I have reviewed this patient and I concur with the Shift Assessment completed by the Licensed Practical Nurse today this shift.
[2018-09-10 12:54] VITALS: BP 123/51
[2018-09-10 17:42] VITALS: BP 145/46
[2018-09-10 21:10] VITALS: BP 149/54
--- NOTE | 2018-09-10 23:59 | NUR ---
REC'D AT CHGE OF SHIFT.SUPINE POSITION.NG TUBE TO RIGHT NARE CONNECTED TO LOW INTERMIT SUCTION.DRSG DRY AND INTACT TO MIDLINE INCISION.SCD'S ON DENIES ANY DISCOMFORT AT PRESENT TIME. WILL CONTINUE TO MONITOR FOR ANY CHGES AND FOLLOW CURRENT PLAN OF CARE.
[2018-09-11 01:18] VITALS: BP 174/60
[2018-09-11 05:22] VITALS: BP 140/50
[2018-09-11 06:01] LABS: ALBUMIN 1.9 g/dL (3.4-5.0); ALKALINE PHOSPHATASE 112 U/L (46-116); BILIRUBIN - TOTAL 0.42 mg/dL (0.2-1.3); CALC OSMOLALITY 293 mosm/kg (275-300); CALCIUM 7.5 mg/dL (8.5-10.1); CARBON DIOXIDE 27.8 mmol/L (21.0-32.0); CHLORIDE - SERUM 112 mmol/L (98-107); CREATININE - SERUM 0.7 mg/dL (0.6-1.3); GLUCOSE 185 mg/dL (74-106); MAGNESIUM - SERUM 1.7 mg/dL (1.8-2.4); PHOSPHOROUS 2.4 mg/dL (2.5-4.9); POTASSIUM - SERUM 3.6 mmol/L (3.5-5.1); SODIUM 146 mmol/L (136-145); UREA NITROGEN 8 mg/dL (7-18); eGFR NON AFRICAN AMERICAN 88 mL/min (90-120)
[2018-09-11 06:04] LABS: ALT (SGPT) 28 U/L (10-68)
[2018-09-11 08:14] VITALS: BP 145/67
--- NOTE | 2018-09-11 11:12 | NUR ---
I have reviewed this patient and I concur with the Shift Assessment completed by the Licensed Practical Nurse today this shift.
[2018-09-11 12:13] VITALS: BP 115/52
--- NOTE | 2018-09-11 13:15 | MORECARE ---
CASE MANAGEMENT DISCHARGE SUMMARY PATIENT: JOSE RAMON JOE CHIP UNIT: [id number] ADM DATE: 09/07/18 AGE: 68 : 49 SEX: F ROOM/BED: D.2237 AUTHOR: MABEL WILSON PHYSICIAN: REFERRING PHYSICIAN: LOUANN MENDES MD DATE OF SERVICE: 09/11/18 Discharge Plan Patient Name: JOSE RAMON JOE [facility] [facility] 1950 Planned Disposition: Home Anticipated Discharge Date: Discharge Date: Expected LOS: Initial Reviewer: [email or web address] Initial Review Date: 09/11/2018 Generated: 09/11/18 2:14 pm DCPIA - Discharge Planning Initial Assessment Updated by [email or web address]: Mae Bailey on 09/11/18 1:13 pm * Is the patient Alert and Oriented? Yes * How many steps to enter\exit or inside your home? Ramp/0 * PCP Dr. Mendes * Pharmacy [place] * Preadmission Environment Home with Family * ADLs Independent * Equipment Bedside Commode Cane Rolling Walker Shower Chair * List name and contact numbers for known caregivers / representatives who currently or will assist patient after discharge: Basia Murillo [facility] - [phone] Shyann Oliva [facility] - [phone] Nicola Joe Jr - son [phone] * Verbal permission to speak to the caregivers and representatives has been obtained from the patient. Yes * Community resources currently utilized None * Additional services required to return to the preadmission environment? No * Can the patient safely return to the preadmission environment? Yes * Has this patient been hospitalized within the prior 30 days at any hospital? Yes Patient Name: JOS ERAMON JOE Page [id number] at 1315 All edits/amendments must be made on the electronic document DICTATION DATE: 09/11/18 1314 HOPPER FILLER: RADHAMES 09/11/18 1314 RPT#: [id number] DC DATE: STATUS: ADM IN [facility] [address] [place] [address] END OF REPORT
--- NOTE | 2018-09-11 13:22 | MORECARE ---
CASE MANAGEMENT DISCHARGE SUMMARY PATIENT: JOSE RAMON JOE CHIP UNIT: [id number] ADM DATE: 09/07/18 AGE: 68 : [birth year] SEX: F ROOM/BED: D.2237 AUTHOR: STEVE,DOC PHYSICIAN: REFERRING PHYSICIAN: LOUANN MENDES MD DATE OF SERVICE: 09/11/18 Discharge Plan Patient Name: JOSE RAMON JOE [facility]:[place] : 1950 Planned Disposition: Home Anticipated Discharge Date: Discharge Date: Expected LOS: Initial Reviewer: [email or web address] Initial Review Date: 09/11/2018 Generated: 09/11/18 2:22 pm Comments DCP- Discharge Planning Updated by [id number]: Mae Bailey on 09/11/18 12:[address] Patient Name: JOSE RAMON JOE Admission Status: Elective Accout number: [id number] Admission Date: 09-07-2018 : 1950 Admission Diagnosis:ILEUS, UNSPECIFIED Attending: LOUANN MENDES Current LOS: 4 Anticipated DC Date: Planned Disposition: Home Primary Insurance: MEDICARE A & B Discharge Planning Comments: CM met with patient to complete initial dc planning assessment. CM educated patient on the CM role and verbal consent given by patient to complete assessment. Patient lives at home with her daughter (Shyann) and her son in law and their 2 grown kids. At discharge patient plans to return and feels this is a safe discharge. CM discussed availability of home health, rehab services, and medical equipment. Patient denied known discharge needs at this time. CM will continue to follow and will assist as needed with dc plans/needs. Lapel Baster: Mae Bailey DCPIA - Discharge Planning Initial Assessment Updated by [email or web address]: Mae Bailey on 09/11/18 1:13 pm * Is the patient Alert and Oriented? Yes * How many steps to enter\exit or inside your home? Ramp/0 * PCP Dr. Mendes * Pharmacy [place] * Preadmission Environment Home with Family * ADLs Independent * Equipment Bedside Commode Cane Rolling Walker Shower Chair * List name and contact numbers for known caregivers / representatives who currently or will assist patient after discharge: Basia Murillo [facility] - [phone] Shyann Oliva [facility] - [phone] Nicola Joe Jr - son [phone] * Verbal permission to speak to the caregivers and representatives has been obtained from the patient. Yes * Community resources currently utilized None * Additional services required to return to the preadmission environment? No * Can the patient safely return to the preadmission environment? Yes * Has this patient been hospitalized within the prior 30 days at any hospital? Yes Last DP export: 09/11/18 12:15 pm Patient Name: JOSE RAMON JOE Page [phone] at 1322 All edits/amendments must be made on the electronic document DICTATION DATE: 09/11/18 132 BRICK GRADER: RADHAMES 09/11/18 1322 RPT#: [id number] DC DATE: STATUS: ADM IN [facility] [address] [place] [address] END OF REPORT
[2018-09-11 16:55] VITALS: BP 126/54
--- NOTE | 2018-09-11 19:30 | NUR ---
rec'd in bed. watching tv.states glad ngt is out tolerating cl. liq. diet well denies nausea. at present time mid line abdominal incision dry and intact.no redness or drainage observed.will continue to monitor for any chges and monitor current plan of care.
[2018-09-11 20:51] VITALS: BP 139/49
[2018-09-12 01:25] VITALS: BP 134/58
--- NOTE | 2018-09-12 03:28 | NUR ---
0100)PREVIOUS DRAIN SITE RIGHT LATERAL SIDE OF ABD.FROM PREVIOUS SURGICAL SITE BED SATURATED SEROUS DRAINAGE.CONTINUOUS TRICKLE NOTED FROM ABOVE SITE.4X4 AND ABD DRSG APPLIED SATURATED IN APPROX 45MIN. LEAKING THRU ENTIRE DRSG.AREA CLEANED APPLIED PEDI UA COLLECTION BAG OVER AREA. WILL CONTINUE TO MONITOR AREA FOR ANY FURTHER CHGES
--- NOTE | 2018-09-12 04:41 | NUR ---
I have reviewed this patient and I concur with the Shift Assessment completed by the Licensed Practical Nurse today this shift.
[2018-09-12 04:48] VITALS: BP 122/50
[2018-09-12 06:57] LABS: ALKALINE PHOSPHATASE 141 U/L (46-116); ALT (SGPT) 26 U/L (10-68); BILIRUBIN - TOTAL 0.64 mg/dL (0.2-1.3); CALC OSMOLALITY 282 mosm/kg (275-300); CARBON DIOXIDE 25.8 mmol/L (21.0-32.0); CHLORIDE - SERUM 105 mmol/L (98-107); CREATININE - SERUM 0.7 mg/dL (0.6-1.3); GLUCOSE 132 mg/dL (74-106); MAGNESIUM - SERUM 1.7 mg/dL (1.8-2.4); PHOSPHOROUS 2.4 mg/dL (2.5-4.9); PROTEIN - SERUM 6.1 g/dL (6.4-8.2); SODIUM 142 mmol/L (136-145); UREA NITROGEN 8 mg/dL (7-18); eGFR NON AFRICAN AMERICAN 88 mL/min (90-120)
[2018-09-12 06:58] LABS: ALBUMIN 2.5 g/dL (3.4-5.0)
--- NOTE | 2018-09-12 07:15 | NUR ---
REC'D IN BED AWAKE AND ALERT. RESP EVEN AND UNLABORED WITH NO DISTRESS NOTED. CAN EXPRESS NEEDS AND WANTS. SLIGHT REDNESS NOTED TO IV SITE WITH PT STATING THAT IT HAD GOTTEN TENDER ON LAST NIGHT. PT HAS NS @ [facility] INFUSING FOR DILUADID ANIMAL GROOMER PUMP.THIS NURSE INFORMED PT THAT WE WILL CONTINUE TO MONITOR IT AND WILL DC IF SHE WISHES BUT THE SITE DOES GIVE GOOD BLOOD RETURN. ASSESSMENT COMPLETED. C/L IN REACH AT BEDSIDE.
[2018-09-12 08:45] VITALS: BP 147/73
[2018-09-12 12:30] VITALS: BP 141/63
--- NOTE | 2018-09-12 12:50 | NUR ---
CALL FROM SON,STATES HE WANTS ME TO GO LOOK AT HIS MOMS IV AND ARM. SON STATES IV WAS TO BE DCD AND HE WANTS IT OUT.I WENT TO ROOM 2237. PT REPORTS IV BEING TENDER AND SLIGHT REDNESS IS NOTED TO SITE. SMALL AMOUNT OF BLOOD RETURN IN CATHETER. IV DCD WITH CATH TIP INTACT.
--- NOTE | 2018-09-12 13:25 | NUR ---
Team Treatment Review: Diet: Clear Liquid Diet PO intake: 360 cc per 1 meal BM: 0 at this time Med: milk of mag, plavix, ditropan, duoneb, protonix, zofran, humalog IVF: D5-NaCl @ 100mL/hr (provides 408 kcal per day) Continue to monitor wt changes, PO intake, BM frequency, and nut related labs Clinical Dietitian Following
--- NOTE | 2018-09-12 15:32 | NUR ---
CALLED AND SPOKE DR. COELLO ABOUT PT REFUSAL TO BE RESITED AND IF HE WANTED TO CHANGE IV LASIX TO PO AND ABTX WELL. REC'D NEW ORDERS FOR LEVAQUIN 500 MG DAILY AND TO GIVEN ONE TIME DOSE OF LASIX PO WELL. PT AWARE OF NEW ORDERS AND VERY APPRECATIVE. C/L IN REACH AT BEDSIDE
[2018-09-12 18:20] VITALS: BP 134/60
[2018-09-12 22:18] VITALS: BP 132/46
--- NOTE | 2018-09-13 04:51 | NUR ---
I have reviewed this patient and I concur with the Shift Assessment completed by the Licensed Practical Nurse today this shift.
[2018-09-13 05:46] VITALS: BP 118/37
[2018-09-13 07:09] LABS: BASOPHILS 0.4 % (0-2); EOSINOPHILS 3.2 % (0-7); HEMATOCRIT 31.4 % (36.0-48.0); HEMOGLOBIN 10.7 g/dL (12-16); IMMATURE GRANULOCYTES 0.2 % (0-5); MCH 29.6 pg (26.0-34.0); MCHC 34.1 g/dL (31.0-37.0); MCV 86.7 fL (80.0-100.0); MEAN PLATELET VOLUME 9.9 fL (7.4-10.4); MONOCYTES 8.3 % (2-11); NEUTROPHILS 66.9 % (40-80); PLATELET COUNT 406 10x3/uL (130-400); RBC 3.62 10x6/uL (4.00-5.40); WBC 5.7 10x3/uL (4.8-10.8)
[2018-09-13 07:26] LABS: ALBUMIN 2.2 g/dL (3.4-5.0); ALKALINE PHOSPHATASE 110 U/L (46-116); ALT (SGPT) 24 U/L (10-68); BILIRUBIN - TOTAL 0.58 mg/dL (0.2-1.3); CALC OSMOLALITY 282 mosm/kg (275-300); CALCIUM 7.8 mg/dL (8.5-10.1); CARBON DIOXIDE 27.4 mmol/L (21.0-32.0); CHLORIDE - SERUM 106 mmol/L (98-107); CREATININE - SERUM 0.6 mg/dL (0.6-1.3); GLUCOSE 133 mg/dL (74-106); PROTEIN - SERUM 4.6 g/dL (6.4-8.2); SODIUM 142 mmol/L (136-145); UREA NITROGEN 6 mg/dL (7-18); eGFR NON AFRICAN AMERICAN > 90 mL/min (90-120)
[2018-09-13 07:36] LABS: POTASSIUM - SERUM 3.7 mmol/L (3.5-5.1)
[2018-09-13] MEDS ORDERED: HYDROCODON-ACE1 EAC7 PO (08:39)
[2018-09-13] MEDS ORDERED: CLEOCIN HCL300 MG PO (08:42)
--- NOTE | 2018-09-13 09:37 | MORECARE ---
CASE MANAGEMENT DISCHARGE SUMMARY PATIENT: JOSE RAMON JOE CHIP UNIT: [id number] ADM DATE: 09/07/18 AGE: 68 : 48 SEX: F ROOM/BED: D.2237 AUTHOR: STEVE,DOC PHYSICIAN: REFERRING PHYSICIAN: LOUANN MENDES MD DATE OF SERVICE: 09/13/18 Discharge Plan Patient Name: JOSE RAMON JOE Facility: [facility]:[place] : 1950 Planned Disposition: Home Anticipated Discharge Date: 09/13/18 Discharge Date: Expected LOS: 6 Initial Reviewer: [email or web address] Initial Review Date: 09/11/2018 Generated: 09/13/18 10:36 am Comments DCP- Discharge Planning Updated by [email or web address]: Charlotte Wiley on 09/13/18 8:[address] Patient Name: JOSE RAMON JOE Encounter No: [id number] : 1950 Primary Insurance: MEDICARE A & B Anticipated DC Date: 09-13-2018 Planned Disposition: Home External Planned Provider: : DCP follow-up note: Patient and family in agreement with discharge plan. No changes to plan. Case management will follow and assist as needed. IMM SERVED. Charlotte Wiley DCP- Discharge Planning Updated by [email or web address]: Mae Bailey on 09/11/18 12:[address] Patient Name: JOSE RAMON JOE Admission Status: Elective Accout number: [id number] Admission Date: 09-07-2018 : 1950 Admission Diagnosis:ILEUS, UNSPECIFIED Attending: LOUANN MENDES Current LOS: 4 Anticipated DC Date: Planned Disposition: Home Primary Insurance: MEDICARE A & B Discharge Planning Comments: CM met with patient to complete initial dc planning assessment. CM educated patient on the CM role and verbal consent given by patient to complete assessment. Patient lives at home with her daughter (Shyann) and her son in law and their 2 grown kids. At discharge patient plans to return and feels this is a safe discharge. CM discussed availability of home health, rehab services, and medical equipment. Patient denied known discharge needs at this time. CM will continue to follow and will assist as needed with dc plans/needs. Rn Forensic: Mae Bailey DCPIA - Discharge Planning Initial Assessment Updated by [email or web address]: Maeorly Bailey on 09/11/18 1:13 pm * Is the patient Alert and Oriented? Yes * How many steps to enter\exit or inside your home? Ramp/0 * PCP Dr. Mendes * Pharmacy [facility] * Preadmission Environment Home with Family * ADLs Independent * Equipment Bedside Commode Cane Rolling Walker Shower Chair * List name and contact numbers for known caregivers / representatives who currently or will assist patient after discharge: Basia Murillo - [facility] - [phone] Shyann Oliva - [facility] - [phone] Nicola Joe Jr - son [phone] * Verbal permission to speak to the caregivers and representatives has been obtained from the patient. Yes * Community resources currently utilized None * Additional services required to return to the preadmission environment? No * Can the patient safely return to the preadmission environment? Yes * Has this patient been hospitalized within the prior 30 days at any hospital? Yes Coverage Notice Reviewer: [id number] Josue Wiley Notice Issued Date-Time: 09/13/2018 9:34 Notice Type: IM Discharge Notice Notice Delivered To: Patient Relationship to Patient: Self Enrichment Assistant Name: Delivery Method: HAND - Hand Delivered Destiny Days: Prior Verbal Notification: Recipient Understood Notice: Yes Recipient Signature: Yes Med Rec Note Co-signed by Attending: Coverage Notice Comment: Last DP export: 09/11/18 12:22 pm Patient Name: JOSE RAMON JOE Page [id number] at 0937 All edits/amendments must be made on the electronic document DICTATION DATE: 09/13/18935 [employer] DIRECTOR: RADHAMES 09/13/18935 RPT#: [id number] DC DATE: STATUS: ADM IN [facility] [address] [place] [address] END OF REPORT
[2018-09-13 10:52] VITALS: BP 126/52
--- NOTE | 2018-09-13 11:02 | NUR ---
DISCHARGE INSTRUCTIONS GIVEN. SEEMS TO UNDERSTAND INSTRUCTIONS. LEFT WITH HOSPITAL STAFF TO GO HOME WITH FAMILY MEMEBER IN PERSONAL RIDE. IV ALREADY OUT. NO SIGNS OF DISTRESS. DENIES ANY NEED BEFORE LEAVING.
== END 2018-09-13 11:03 | disposition home or self-care (01) | DRG 354 ==
LOC: D.MS 11:11
PROVIDERS: Emergency Medicine; Internal Medicine Nephrology; Surgery; ADMIT Family Medicine; ATTEND Family Medicine
PROC: 0WUF0JZ Supplement Abdominal Wall with Synthetic Substitute, Open Approach (ICD-10-PCS; principal; 2018-09-09 08:15)
DX: K43.0 Incisional hernia with obstruction, without gangrene (principal); N17.9 Acute kidney failure, unspecified; D62 Acute posthemorrhagic anemia; I10 Essential (primary) hypertension; K21.9 Gastro-esophageal reflux disease without esophagitis; E78.5 Hyperlipidemia, unspecified; I25.10 Atherosclerotic heart disease of native coronary artery without angina pectoris; E87.6 Hypokalemia

== ENCOUNTER 2018-11-21 08:00 | Outpatient (CLI) | payer MEDICARE, BC ==
[2018-09-08 19:56] VITALS: BMI 34.6
[~2018-11-21 08:00] MED LIST changes: +CLEOCIN HCL300 MG PO
== END 2018-11-21 23:59 | disposition home or self-care (01) ==
LOC: D.MAMMO 08:00
PROVIDERS: ATTEND Family Medicine
DX: Z12.31 Encounter for screening mammogram for malignant neoplasm of breast (principal)